=== PATIENT | male | born 1950 | race Caucasian/White ===

== ENCOUNTER 2019-03-18 18:36 | Inpatient (IN) | payer MEDICARE, BC, SELFPAY ==
[2019-03-18] VITALS (18 sets, daily range): BP systolic 84–154; BP diastolic 48–82; PULSE 84–109; RESP 12–34; TEMP 36.9; O2SAT 64–100
--- NOTE | ~2019-03-18 | XR_ITS ---
XR chest 1V portable DATE: 03/25/2019 06:07 INDICATION: Acute on chronic respiratory failure. COPD exacerbation. TECHNIQUE: Portable AP chest on 04/04/2019 at 0528 hours COMPARISON: 04/03/2019 portable AP chest at 0517 hours FINDINGS: ET tube tip is 4.4 cm above joanne. NG tube is noted passing into stomach. No central lines . Bilateral hyperinflation consistent with COPD. There is old pulmonary granulomatous disease including calcified right lower lung calcified pulmonary granuloma and calcified right hilar and mediastinal n odes. No pulmonary infiltrate or consolidation, pleural effusion or pulmonary vascular congestion or pneumothorax. Normal heart size. Diffuse osteopenia. IMPRESSION: COPD Old pulmonary granulomatous disease ET and NG tubes satisfactory position Reviewed, dictated and finalized at location A. IN DOFFER
--- NOTE | ~2019-03-18 | XR_ITS ---
EXAMINATION: XR chest 1V portable DATE: 03/18/2019 22:52 INDICATION: Acute respiratory failure. TECHNIQUE: A single frontal view of the chest was obtained on 2 radiographs. COMPARISON: Chest single view at 7:58 PM FINDINGS: The lungs are hyperexpanded with lucencies, consistent with emphysema. A calcified right ashley ng nodule and calcified right hilar and mediastinal lymph nodes are consistent with old granulomatous disease. There is mild atelectasis in the lower lung zones. No pleural effusion or pneumothorax. The heart size is normal. IMPRESSION: 1. Mild atelectasis in the lower lung zones. 2. Emphysema. Reviewed, dictated and finalized at location A. UIT FACTORY WORKER
--- NOTE | ~2019-03-18 | XR_ITS ---
EXAMINATION: XR chest 1V portable DATE: 03/27/2019 06:00 INDICATION: COPD exacerbation. Acute respiratory failure. TECHNIQUE: frontal view of the chest was obtained. COMPARISON: Chest radiograph and CT abdomen and pelvis dated 03/26/2019 FINDINGS: Endotracheal tube tip 7.2 cm above the joanne. Nasogastric tube extends below the left hemidiaphragm with distal tip collimated off the study. Hyperexpansion of lungs with asymmetric increased lucency and architectural distortion in the left mi d and lower lung zones consistent with emphysema. Gradient of mild hazy airspace opacity in the right lower lung zone corresponding to a small posteriorly layering pleural effusion with associated atele ctasis. Calcified nodules in the right lower lung zone along with calcified right hilar and mediastin al lymph nodes consistent with old granulomatous disease. No pneumothorax. The cardiomediastinal silh ouette is normal. IMPRESSION: 1. Endotracheal tube tip 7.2 cm above the joanne. Recommend advancement by 4-[address] Courtney discu ssed these findings with Dr. Stafford at 7:30 AM. 2. Emphysema. 3. Small right pleural effusion with mild right basilar atelectasis. Reviewed, dictated and finalized at location A. NING SOLUTIONS SPECIALIST IMPRESSION: 1. Endotracheal tube tip 7.2 cm above the joanne. Recommend advancement by 4-[address] Courtney discussed these findings with Dr. Stafford at 7:30 AM. 2. Emphysema. 3. Small right pleural effusion with mild right basilar atelectasis.
--- NOTE | ~2019-03-18 | XR_ITS ---
EXAMINATION: XR abdomen obstructive series DATE: 03/26/2019 09:28 INDICATION: Dilated small bowel. TECHNIQUE: Upright and supine views of the abdomen were obtained. COMPARISON: Abdomen radiographs 03/22/2019, 03/23/2019 FINDINGS: There is a mildly dilated loop of small bowel in right abdomen. There is a small volume of stool in the colon. No free intraperitoneal gas. The nasogastric tube tip is in the stomach. There is a right groin central venous catheter. There is internal fixation of proximal right femur. Calcified right lung nodules and calcified right hilar and mediastinal lymph nodes are consistent with old gra nulomatous disease. IMPRESSION: 1. Persistently mildly dilated loop of small bowel, consistent with adynamic ileus versus small bowel obstruction. Reviewed, dictated and finalized at location A. ZINE PUBLISHER IMPRESSION: 1. Persistently mildly dilated loop of small bowel, consistent with adynamic il eus versus small bowel obstruction.
--- NOTE | ~2019-03-18 | XR_ITS ---
EXAMINATION: XR chest 1V portable DATE: 03/22/2019 05:27 INDICATION: Mechanical ventilation. TECHNIQUE: A single frontal view of the chest was obtained. COMPARISON: Chest single view 03/21/2019 FINDINGS: The lungs are hyperexpanded with lucencies, consistent with emphysema. No pneumonia, pleura l effusion, or pneumothorax. The heart size is normal. Calcified right hilar and mediastinal lymph no cecy are consistent with old granulomatous disease. The endotracheal tube tip is 3.2 cm above the aixa na. The nasogastric tube tip is in the stomach. IMPRESSION: 1. Emphysema. Reviewed, dictated and finalized at location A. SAWYER IMPRESSION: 1. Emphysema.
--- NOTE | ~2019-03-18 | XR_ITS ---
EXAMINATION: XR chest ET placement DATE: 03/19/2019 01:35 INDICATION: Intubation. TECHNIQUE: A single frontal view of the chest was obtained on 2 radiographs. COMPARISON: Chest single view 03/18/2019 FINDINGS: The lungs are hyperexpanded with lucencies, consistent with emphysema. A calcified right ashley ng nodule and calcified right hilar and mediastinal lymph nodes are consistent with old granulomatous disease. There is mild atelectasis at the lung bases. No pleural effusion or pneumothorax. The heart size is normal. The endotracheal tube tip is 6.7 cm above the joanne. The nasogastric tube tip is in the stomach. IMPRESSION: 1. Mild atelectasis at the lung bases. 2. Emphysema. Reviewed, dictated and finalized at location A. ING AND FINANCE INSTRUCTOR
--- NOTE | ~2019-03-18 | CT_ITS ---
EXAMINATION: CT abdomen pelvis w con DATE: 03/26/2019 15:29 INDICATION: Abdominal distention. TECHNIQUE: Computed tomography (CT) of the abdomen and pelvis was performed with 100 mL Omnipaque 350 intravenous contrast. Automated exposure control and iterative reconstruction technique were employe d. The dose-length product was 481.74 mGy-cm. COMPARISON: PET/CT 12/10/2015 FINDINGS: The visualized portions of the lung bases demonstrate emphysema. There is mild bronchiectas is bilaterally. A calcified right lung nodule is consistent with old granulomatous disease. There is a small right pleural effusion. There is dependent passive atelectasis in right lung. The heart size is normal. No pericardial effusion. The nasogastric tube tip is in the stomach. The liver demonstrate s periportal edema. There are gallstones in the gallbladder, which is normal in size. Calcifications in the spleen are consistent with old granulomatous disease. The pancreas and adrenal glands are norm al. There are cysts in the kidneys measuring up to 2.0 cm on the left. There is a 5 mm stone in left kidney. There is diverticulosis of the colon without evidence of diverticulitis. There are no dilated loops of bowel. The appendix is not visualized. There is a small volume of ascites. Body wall edema is noted. There is a central venous catheter entering right common femoral vein with tip in the infer ior vena cava. There is an old healed fracture of proximal right femur with internal fixation. There is severe lumbar spondylosis. There is mild chronic anterior wedging of L1 vertebral body. IMPRESSION: 1. Small volume of ascites. 2. Small right pleural effusion. 3. Severe emphysema. Reviewed, dictated and finalized at location A. O OPHTHALMOLOGIST
--- NOTE | ~2019-03-18 | XR_ITS ---
XR chest 1V portable DATE: 03/24/2019 05:35 INDICATION: Acute on chronic respiratory failure. COPD. TECHNIQUE: Portable AP chest on 03/24/2019 at 0517 hours COMPARISON: Portable AP chest on 03/23/2019 0514 hours FINDINGS: ET tube tip is approximately 5.5 cm above joanne; ideal range is 2-5 cm. Nasogastric tube in gastric fundus. No central lines. Bilateral hyperinflation consistent with COPD. No pulmonary infiltrate or consolidation, pleural effu justin or pneumothorax is evident. There is pulmonary vascular redistribution which may indicate pulmon marco venous hypertension. Normal heart size. There is pulmonary vascular redistribution which may be secondary to COPD or mild pulmonary venous hypertension. Clinical correlation is advised. There is old pulmonary granulomatous disease including calcified right lower lobe pulmonary granuloma and calcified right hilar, subcarina l and azygos lymph nodes. IMPRESSION: COPD Pulmonary vascular distribution which may be secondary to the COPD or possibly pulmonary venous hyper tension. Heart size is normal ET tube 5.5 cm above joanne; ideal range is 2-5 cm NG tube in gastric fundus Reviewed, dictated and finalized at location A. STIVE TECHNOLOGY TRAINER IMPRESSION: COPD Pulmonary vascular distribution which may be secondary to the COPD or possibly pulmonary venous hypertension. Heart size is normal ET tube 5.5 cm above joanne; ideal range is 2-5 cm NG tube in gastric fundus
--- NOTE | ~2019-03-18 | XR_ITS ---
EXAMINATION: XR chest 1V portable DATE: 03/23/2019 05:35 INDICATION: Acute on chronic respiratory failure. TECHNIQUE: A single frontal view of the chest was obtained on 2 radiographs. COMPARISON: Chest single view 03/22/2019, chest CT 01/15/2019 FINDINGS: The lungs are hyperexpanded with lucencies, consistent with emphysema. A calcified right ashley ng nodule and calcified right hilar and mediastinal lymph nodes are consistent with old granulomatous disease. No pleural effusion or pneumothorax. The heart size is normal. The endotracheal tube tip is 4.1 cm above the joanne. The nasogastric tube tip is in the stomach. IMPRESSION: 1. Emphysema. Reviewed, dictated and finalized at location A. INSTRUMENT REPAIRER IMPRESSION: 1. Emphysema.
--- NOTE | ~2019-03-18 | XR_ITS ---
EXAMINATION: XR abdomen obstructive series EXAM DATE: 03/23/2019 10:59 INDICATION: Ileus follow-up. Feeding tube. TECHNIQUE: Frontal upright projection of the upper abdomen, frontal projection of the lower abdomen f or interpretation. Comparison is made to prior examination from 03/22/2019. FINDINGS: Feeding tube tip and side-port project over gastric cardia, expected position. There is ex pected amount of colonic stool and gas. Mildly dilated air-filled small bowel again noted. There a re no suspicious calcifications identified. Mild to moderate bony degenerative changes. Scattered r ight-sided lung granulomata and evidence of hyperinflation. No free intraperitoneal gas suspected. Ri ght hip gamma nail. IMPRESSION: Mildly dilated air-filled small bowel. Feeding tube in position. Reviewed, dictated and finalized at location A. ICAL SCRUB TECH
--- NOTE | ~2019-03-18 | XR_ITS ---
EXAMINATION: XR chest 1V portable DATE: 03/21/2019 05:44 INDICATION: Mechanical ventilation. TECHNIQUE: A single frontal view of the chest was obtained. COMPARISON: A single view 03/20/2019 FINDINGS: The lungs are hyperexpanded with lucencies, consistent with emphysema. A calcified right ashley ng nodule and calcified right hilar and mediastinal lymph nodes are consistent with old granulomatous disease. No pleural effusion or pneumothorax. The heart size is normal. The endotracheal tube tip is 2.2 cm above the joanne. The nasogastric tube tip is in the stomach with proximal side port in the d istal esophagus. There are old healed right rib fractures. IMPRESSION: 1. Emphysema. 2. Nasogastric tube proximal side port in the distal esophagus. Advancement 5 cm is recommended. Reviewed, dictated and finalized at location A. EACH MANAGER IMPRESSION: 1. Emphysema. 2. Nasogastric tube proximal side port in the distal esophagus. Advancement 5 c m is recommended.
--- NOTE | ~2019-03-18 | XR_ITS ---
EXAMINATION: XR chest 1V portable DATE: 03/18/2019 20:04 INDICATION: Shortness of breath. TECHNIQUE: A single frontal view of the chest was obtained on 2 radiographs. COMPARISON: Chest single view 01/22/2019, chest CT 01/15/2019 FINDINGS: The lungs are hyperexpanded with lucencies, consistent with emphysema. A calcified right ashley ng nodule and calcified right hilar and mediastinal lymph nodes are consistent with old granulomatous disease. No pleural effusion or pneumothorax. The heart size is normal. IMPRESSION: 1. Emphysema. Reviewed, dictated and finalized at location A. UMER INSIGHT MANAGER IMPRESSION: 1. Emphysema.
--- NOTE | ~2019-03-18 | XR_ITS ---
EXAMINATION: XR chest 1V portable DATE: 03/20/2019 05:56 INDICATION: Mechanical ventilation. TECHNIQUE: A single frontal view of the chest was obtained. COMPARISON: Chest single view 03/19/2019 FINDINGS: A calcified right lung nodule and calcified right hilar and mediastinal lymph nodes are con sistent with old granulomatous disease. The lungs are hyperexpanded with lucencies, consistent with e mphysema. No pleural effusion or pneumothorax. The heart size is normal. The endotracheal tube tip is 4.7 cm above the joanne. The nasogastric tube tip is in the stomach. IMPRESSION: 1. Emphysema. Reviewed, dictated and finalized at location A. SEAT COVERER IMPRESSION: 1. Emphysema.
--- NOTE | ~2019-03-18 | XR_ITS ---
EXAMINATION: XR chest 1V portable DATE: 03/26/2019 06:03 INDICATION: COPD. Acute on chronic respiratory failure. TECHNIQUE: frontal view of the chest was obtained. COMPARISON: Chest radiograph dated 03/25/2019 FINDINGS: Endotracheal tube tip 5.2 cm above the joanne. Nasogastric tube extends below the left hemidiaphragm with distal tip collimated off the study. Emphysema with hyperexpansion of lungs and increased lucency and architectural distortion most promin ent in the left mid to lower lung zone. Calcified nodule at the right lower lung zone and calcified r ight hilar and mediastinal lymph nodes consistent with old granulomatous disease. No focal airspace o pacities, pulmonary edema, pleural effusion or pneumothorax. Heart size and mediastinal silhouette ar e normal. Old right ninth and 10th rib fractures. IMPRESSION: 1. Emphysema. 2. Endotracheal tube tip 5.2 cm above the joanne. Could consider advancement by 2-3 cm. Reviewed, dictated and finalized at location A. MARKETING AGENT
--- NOTE | ~2019-03-18 | XR_ITS ---
EXAMINATION: XR abdomen obstructive series DATE: 03/22/2019 10:34 INDICATION: Abdominal pain. TECHNIQUE: Upright and supine views of the abdomen were obtained. COMPARISON: Chest CT 01/15/2019 FINDINGS: There is a dilated loop of small bowel in right abdomen. There is a moderate volume of stoo l in the colon. No free intraperitoneal gas. The nasogastric tube tip is in the stomach with proximal side port in the distal esophagus. There is a catheter overlying right pelvis. There is internal fix ation of proximal right femur. IMPRESSION: 1. Dilated loop of small bowel in right abdomen, which may be adynamic ileus or less likely small bow el obstruction. 2. Proximal side port of the nasogastric tube in the distal esophagus. Advancement 3 cm is recommende d. Reviewed, dictated and finalized at location A. ERCIAL ESCROW OFFICER IMPRESSION: 1. Dilated loop of small bowel in right abdomen, which may be adynamic ileus or less likely small bowel obstruction. 2. Proximal side port of the nasogastric tube in the distal esophagus. Advancem ent 3 cm is recommended.
--- NOTE | 2019-03-18 18:40 | ED.SOB ---
HPI - SOB/Dyspnea General Chief Complaint: Shortness of Breath/Dyspnea Stated Complaint: sob Time Seen by Provider: 03/18/19 18:41 Source: patient, EMS and RN notes reviewed Mode of arrival: EMS Limitations: no limitations History of Present Illness HPI Narrative: Pt is a 68 y/o male who presents to the ED, via EMS, with c/o SOB which began this morning, which has not alleviated since this morning. Pt reports increased fatigue since 6 days ago, but denies a cough, a fever, generalized myalgias, nausea, or vomiting. EMS reports administering an Albuterol treatment and 125 mg Solumedrol medication which began to alleviate the pt's symptoms. EMS reports the pt's oxygen saturation increased to 98 en route to the ED. EMS states the pt's appearance has improved since their arrival to the scene till now in the ED. EMS reports the pt has a PMHx of HTN, emphysema, and COPD. MD elicited complaint: shortness of breath Pertinent past history: COPD and other (emphysema) Onset (ago): hour(s) (this morning) Context: other (sudden onset) Timing: constant Relieving factors: medication (Albuterol breathing treatment; Solumedrol medication 125 mg) Known history of: COPD and other (emphysema) Associated symptoms: other (increased fatigue) Related Data Home Medications Medication Instructions Recorded Confirmed albuterol sulfate 90 mcg/actuation 1 puff INHALATION Q4H PRN 01/04/19 01/22/19 aerosol inhaler bupropion HCl 300 mg 24 hr tablet, 300 mg PO QAM 01/04/19 01/22/19 extended release clonazepam 1 mg tablet 1 mg PO TID PRN 01/04/19 01/22/19 mometasone-formoterol HFA 200 2 puff INHALATION BID 01/04/19 01/22/19 mcg-5 mcg/actuation aerosol inhaler nitroglycerin 0.4 mg sublingual 0.4 mg SUBLINGUAL Q5M PRN 01/04/19 01/22/19 tablet paroxetine HCl 40 mg tablet 40 mg PO DAILY 01/04/19 01/22/19 tiotropium bromide 18 mcg capsule 1 cap INHALATION DAILY 01/04/19 01/22/19 with inhalation device ascorbic acid (vitamin C) 500 mg PO DAILY 01/22/19 01/22/19 Allergies Allergy/AdvReac Type Severity Reaction Status Date / Time guaifenesin Allergy Unknown PT STATES Verified 03/18/19 18:44 FEELS WEIRD, GETS OUT OF IT Review of Systems Review of Systems: All systems reviewed & are unremarkable except as noted in HPI and below Constitutional: Constitutional: Reports fatigue (increased) and Denies fever(s) Respiratory: Respiratory: Denies cough and Reports dyspnea Gastrointestinal: Gastrointestinal: Denies nausea and Denies vomiting Musculoskeletal: Musculoskeletal: Denies myalgias (generalized) [facility] Social History Social History Smoking packs per day: 1 Smoking cigarettes per day: 20.0 Years smoked: 50 Smoking pack-years: 50.00 Smoking status: Light tobacco smoker Tobacco type: cigarettes Second hand tobacco smoke exposure: No Alcohol intake: current Drinks per week: 1 Substance use: never Substance use type: marijuana Gender identity (if verbalized by the patient): Male Spiritual care concerns: No Exam Const: General: alert and ill appearing acutely and chronically Nutritional Appearance: thin Orientation/consciousness: patient oriented x3 Other: mild distress HENMT: Head: normal to inspection Neck: Neck: normal visual inspection Chest: Other: minimal chest rise with respirations Resp: Effort & Inspection: labored and tachypneic Auscultation: no crackles, rhonchi upper bilaterally, wheezes and diminished lung sounds diffuse Cardio: Rate: tachycardic Rhythm: regular rhythm GI: GI Palp: Yes Soft to palpation and No Tenderness to palpation present (GI) Skin: General skin exam: normal color Rashes: no rashes Neuro: General: patient oriented x3 and moves all extremities Speech: normal speech Extrem: General: no edema Course Vital Signs Vital signs: Vital Signs Temperature 36.9 C 03/18/19 18:38 Pulse Rate 10
--- NOTE | 2019-03-18 18:41 | ECG_ITS ---
Measurements Intervals [place] Rate: 106 P: 90 IA: 142 QRS: 109 QRSD: 106 T: 108 QT: 347 QTc: 463 Interpretive Statements SINUS TACHYCARDIA POSSIBLE LEFT ATRIAL ENLARGEMENT RIGHT AXIS DEVIATION BASELINE ARTIFACT- I, II, AVR, AVL, AVF, V1-V6 ABNORMAL ECG Electronically Signed On 03-19-2019 7:12:32 CATHODIC PROTECTION TECHNICIAN by Tj Hartman D.O.
[2019-03-18] MEDS: IPRATROPIUM BR 0.02% INH SOLN 0.5 MG/2.5 ML VIAL 1 MG INHALATION (18:57)
[2019-03-18] MEDS: ALBUTEROL SULFATE NEB 2.5 MG/0.5 ML INH 10 MG INHALATION (18:57)
[2019-03-18] MEDS: MAGNESIUM SULF 2 GM/WATER 50ML 2 GM/50 ML BAG IVPB (19:02)
[2019-03-18 19:14] LABS: Alveolar/Arterial O2 Gradient 99.7 mmHg; Base Excess ABG 7.6 mEq/l (+/-2.0); Fractional Inspired Oxygen 36 %; Oxygen Content ABG 16.8 %vol (16.0-22.0); Oxyhemoglobin 86.5 % THb (90.0-100.0); PO2 ABG 56.9 mmHg (80.0-100.0); PO2 FiO2 Ratio Arterial Blood 1.58 %; Total Hemoglobin 13.8 g/dL (12.0-18.0)
[2019-03-18 19:17] LABS: pH ABG 7.262 (7.350-7.450)
[2019-03-18 19:18] LABS: Device NASAL CANNULA; Modified Allen's Test Pass; Oxygen Saturation ABG 83.6 % (95.0-100.0); PCO2 ABG 86.3 mmHg (35.0-45.0); Site Drawn LEFT RADIAL
[2019-03-18 19:34] LABS: Lactic Acid Reflex 0.7 mmol/L (0.7-2.1)
[2019-03-18 19:36] LABS: INR 0.9; Prothrombin Time 12.2 Seconds (11.1-14.7)
[2019-03-18 19:37] LABS: Partial Thromboplastin Time 31.3 SECONDS (22.3-36.8)
[2019-03-18 19:38] LABS: Basophils Absolute Auto 0.1 K/mm3 (0.0-0.1); Basophils Percent Auto 0.3 % (0.2-1.2); Hematocrit 43.3 % (42.0-52.0); Hemoglobin 13.3 g/dL (14.0-18.0); Immature Granulocyte Absolute 0.06 K/mm3 (0.00-0.031); Immature Granulocyte Percent A 0.4 % (0-0.5); Lymphocytes Percent Auto 3.2 % (18.3-44.2); Mean Corpuscular HGB Conc 30.7 g/dl (32-36); Mean Corpuscular Hemoglobin 31.1 pg (26-34); Mean Corpuscular Volume 101.4 fl (80-100); Mean Platelet Volume 9.6 fl (7.4-10.4); Monocytes Absolute Auto 1.2 K/mm3 (0.1-0.6); Monocytes Percent Auto 7.9 % (2.6-8.5); Neutrophils Absolute Auto 13.9 K/mm3 (1.3-6.7); Neutrophils Percent Auto 88.2 % (45.5-73.1); Platelet Count Result 306 k/mm3 (150-375); Red Blood Count 4.27 M/mm3 (4.6-6.20); Red Cell Distribution Width 14.5 % (11.5-14.5); White Blood Count 15.8 K/mm3 (4.5-10.0)
[2019-03-18 19:39] LABS: Blood Urea Nitrogen 18 mg/dL (9-20); Calcium 9.4 mg/dL (8.4-10.2); Carbon Dioxide > 40 mmol/L (22-30); Chloride 85 mmol/L (98-107); Estimated Glomerular Filt Rate > 60; Glucose 110 mg/dL (75-110); Potassium 4.3 mmol/L (3.4-5.0); Sodium 135 mmol/L (137-145)
[2019-03-18 19:46] LABS: NT Pro B Type Natriuretic Pept 260 PG/ML (5-100); Troponin I < 0.012 ng/mL (0.000-0.034)
[2019-03-18] MEDS: SODIUM CHLORIDE 0.9% IV 1,000 ML 999 ML IV CONT (21:21)
[2019-03-18] MEDS: SODIUM CHLORIDE 0.9% IV 1,000 ML 999 ML ×2 (21:47→22:58)
[2019-03-18 22:26] LABS: Alveolar/Arterial O2 Gradient 52.3 mmHg; Fractional Inspired Oxygen 30 %; HCO3 ABG 34.7 mEq/l (22.0-26.0); Oxygen Content ABG 14.9 %vol (16.0-22.0); Oxyhemoglobin 83.3 % THb (90.0-100.0); PO2 ABG 56.1 mmHg (80.0-100.0); PO2 FiO2 Ratio Arterial Blood 1.87 %; Total Hemoglobin 12.7 g/dL (12.0-18.0)
[2019-03-18 22:31] LABS: pH ABG 7.205 (7.350-7.450)
[2019-03-18 22:32] LABS: Device NON-INVASIVE VENT; Modified Allen's Test Pass; Oxygen Saturation ABG 80.7 % (95.0-100.0); PCO2 ABG 89.8 mmHg (35.0-45.0); Site Drawn RIGHT BRACHIAL
[2019-03-18 22:33] LABS: Non-Invasive Expiratory Pressure 8 CMH2O; Non-Invasive Inspiratory Pressure 14 CMH2O; Non-Invasive Vent Rate 12 /MIN
[2019-03-19] VITALS (76 sets, daily range): BP systolic 58–165; BP diastolic 47–106; PULSE 81–100; RESP 12–20; TEMP 36.7–37.1; O2SAT 92–100; BMI 19.1
--- NOTE | 2019-03-19 00:15 | ADMGEN ---
This patient, To Josue, was admitted to Intensive Care Unit-5. Patient/family oriented to hospital policies and general routines including ID bracelet, bed and alarms, visiting hours, pain management, procedures, bathroom and other care routines, personal items, smoking policy, room service/diet, and visiting hours. Valuables list has been completed. Information on how to activate the Rapid Response Team has been discussed. Patient/Family are encouraged to report perceived risks to care and to ask questions if they do not understand what they are told or what they should do.
[2019-03-19 00:36] LABS: Alveolar/Arterial O2 Gradient 154.4 mmHg; Base Excess ABG 3.8 mEq/l (+/-2.0); Fractional Inspired Oxygen 60 %; HCO3 ABG 34.9 mEq/l (22.0-26.0); Methemoglobin ABG 0.7 %THb (0-1.5); Oxygen Content ABG 16.8 %vol (16.0-22.0); Oxygen Saturation ABG 98.6 % (95.0-100.0); Oxyhemoglobin 97.5 % THb (90.0-100.0); PO2 ABG 167.1 mmHg (80.0-100.0); PO2 FiO2 Ratio Arterial Blood 2.79 %; Reduced Hemoglobin 1.8 %THb (0-5.0)
[2019-03-19 00:39] LABS: Device NON-INVASIVE VENT; Modified Allen's Test Pass; PCO2 ABG 96.6 mmHg (35.0-45.0); Site Drawn LEFT RADIAL; pH ABG 7.176 (7.350-7.450)
[2019-03-19 00:40] LABS: Non-Invasive Expiratory Pressure 9 CMH2O; Non-Invasive Inspiratory Pressure 17 CMH2O; Non-Invasive Vent Rate 12 /MIN
[2019-03-19 00:50] LABS: Lactic Acid 0.7 mmol/L (0.7-2.1)
[2019-03-19 00:51] LABS: Magnesium 2.3 mg/dL (1.6-2.3)
--- NOTE | 2019-03-19 01:22 | P.PCNBED_ITS ---
Procedures Central Line Placement: Right Femoral: Discussed w/ patient and/or surrogate, the non-emergent placement of a central venous catheter, including its clinical necessity/indication & associated potential risks & complications.: Yes The patient and/or surrogate understand(s) and acknowledge(s) the need to proceed with central venous catheter insertion as an important element of the patient's clinical management.: Yes Emergently Placed - (Given emergent patient conditions, temporal constraints may not have permitted and aforementioned informed consent.): No Central Line Date: 03/19/19 Central Line Time: 01:05 Pre-procedural Time-Out was completed immediately before starting the procedure and confirmed: Patient Identification, Site, Procedure, Patient Position and the Availability of Requisite Equipment.: Yes Patient Position: supine Patient placed on monitor/pulse ox: Yes Provider Prep: mask, sterile gown, sterile gloves, Max. sterile barrier precautions, cap and hand hygiene Central line prep: Povidone-Iodine 1% Ultrasound used for placement: Yes Central line lumen inserted: triple Uzbek: 7 Length (cm): 20 Depth of Insertion (cm): 20 Post procedure: sutured in place, good blood return, all ports aspirated, flushed, capped, tegaderm, hemostatic disc and aseptic technique maintained throughout procedure Patient tolerated procedure: well and no complications Complications: none Additional comments: Date of service of procedure was 03/19/2019 at 01:00 hrs.
--- NOTE | 2019-03-19 01:23 | P.PCNBED_ITS ---
Procedures Intubation: Intubation Date: 03/19/19 Intubation Time: 01:24 A pre- procedural Time-Out was completed immediately before starting the procedure and confirmed: Patient Identification, Site, Procedure, Patient Position and the Availability of Requisite Equipment: Yes Sedative: none Paralytic: succinylcholine Mg given: 100 Laryngoscope: Horacio ET tube size: 8 Tube secured depth (cm): 25 Tube secured location: lips Tube placement confirmation: visualized tube passing through cords, equal breath sounds bilaterally, no breath sounds over epigastrium and confirmation by capnometry Patient tolerated procedure: well Intubation complications: none Additional comments: Date of service was 03/19/2019 at 01:20 hrs.
[2019-03-19] MEDS: MIDAZOLAM HCL 50 MG in DEXTROSE 5% 90 ML IV CONT ×2 (01:30→16:49)
--- NOTE | 2019-03-19 01:32 | PM.IMHP ---
H&P: HPI History of Present Illness Chief complaint: acute respiratory failure with hypercapnea Narrative: This is a 68-year-old male with known history of chronic respiratory failure on 2-3 L of oxygen at home as well as end-stage COPD and chronic smoker who is known to me from a recent admission to the hospital for acute respiratory failure and who returned to the hospital tonight with severe shortness of breath. The patient's tells me that he has not been feeling well for over a week now but started to experience increased wheezing and shortness of breath since yesterday. The patient denies any worsening cough and his has not noticed that he has been coughing much. He also is complaining of generalized weakness. Patient denies any type of fevers or chills. Tonight they decided to come to the emergency room as he had obvious increased work of breathing at home. The patient was evaluated emergency room tonight and found to be septic with hypotension, tachycardia, tachypnea, and an elevated white blood cell count. Patient was started on respiratory antibiotics including azithromycin and ceftriaxone and was treated with 3 L of normal saline IV bolused. Arterial blood gas demonstrated hypercapnic respiratory failure at the patient was initiated on BiPAP. Patient denies any other significant symptoms such as chest pain, sore throat, abdominal pain, nausea, vomiting, fever, chills, headache, dysuria, hematuria, rectal bleeding, lower extremity swelling, or lower extremity pain. ER provider has consulted transplant nurse, Dr. Stafford. Review of Systems Review of Systems: All systems reviewed & are unremarkable except as noted in HPI and below PMFSH Past Medical History Medical History Arthritis Bronchitis Colon polyps COPD (chronic obstructive pulmonary disease) Depression Hand fracture History of angina HTN (hypertension) Osteomyelitis rt shoulder Pneumonia Sleep apnea Tobacco dependence Surgical History Surgical History Hx of tonsillectomy Hx of vasectomy Family History Family History Mother Family history of lung cancer Patient's mother is Acute myocardial infarction Father Patient's father is Acute myocardial infarction Social History Social History Smoking packs per day: 1 Smoking cigarettes per day: 20.0 Years smoked: 50 Smoking pack-years: 50.00 Smoking status: Light tobacco smoker Tobacco type: cigarettes Second hand tobacco smoke exposure: No Alcohol intake: current Drinks per week: 1 Substance use: never Substance use type: marijuana Gender identity (if verbalized by the patient): Male Spiritual care concerns: No Meds Home Medications and Allergies Home Medications Medication Instructions Recorded Confirmed Type amlodipine 5 mg-valsartan 160 mg 1 tablet PO DAILY #90 tablet 12/25/18 03/19/19 Rx tablet albuterol sulfate 90 mcg/actuation 2 puff INHALATION Q4H PRN 01/04/19 03/19/19 History aerosol inhaler bupropion HCl 300 mg 24 hr tablet, 300 mg PO QAM 01/04/19 03/19/19 History extended release clonazepam 1 mg tablet 1 mg PO TID PRN 01/04/19 03/19/19 History mometasone-formoterol HFA 200 2 puff INHALATION BID 01/04/19 03/19/19 History mcg-5 mcg/actuation aerosol inhaler nitroglycerin 0.4 mg sublingual 0.4 mg SUBLINGUAL Q5M PRN 01/04/19 03/19/19 History tablet paroxetine HCl 40 mg tablet 40 mg PO DAILY 01/04/19 03/19/19 History tiotropium bromide 18 mcg capsule 1 cap INHALATION DAILY 01/04/19 03/19/19 History with inhalation device ascorbic acid (vitamin C) 500 mg PO DAILY 01/22/19 03/19/19 History aripiprazole 2 mg tablet 2 mg PO DAILY #90 tablet 02/12/19 03/19/19 Rx levalbuterol HCl 1.25 mg INHALATION Q6H
[2019-03-19] MEDS: NOREPINEPHRINE 8 MG/D5W 250 ML 8 MG/250 ML BAG 3.8 MG IV CONT (01:34)
[2019-03-19] MEDS: methylPREDNISolone SOD SUCC 125 MG VIAL 60 MG IV PUSH ×3 (02:14→13:06)
--- NOTE | 2019-03-19 02:18 | ECG_ITS ---
Measurements Intervals [place] Rate: 99 P: 87 TN: 137 QRS: 83 QRSD: 81 T: 90 QT: 332 QTc: 427 Interpretive Statements SINUS RHYTHM POSSIBLE RIGHT ATRIAL ENLARGEMENT LOW QRS VOLTAGE IN LIMB LEADS NONSPECIFIC ST ELEVATION IN ANTERIOR LEADS BORDERLINE T WAVE ABNORMALITY- LATERAL LEADS BORDERLINE ECG Electronically Signed On 03-19-2019 11:02:32 MACHINE ACCOUNTANT by Tj Hartman D.O.
[2019-03-19] MEDS: SODIUM CHLORIDE 0.9% IV 500 ML 999 ML IV CONT (02:30)
[2019-03-19 03:35] LABS: Troponin I < 0.012 ng/mL (0.000-0.034)
[2019-03-19] MEDS: RAPID SEQUENCE INTUBATION KIT 1 EACH (03:59)
--- NOTE | 2019-03-19 04:07 | PCRCNOTE ---
0200 neb tx was omitted; a continuous neb tx was ordered
[2019-03-19 04:37] LABS: Alveolar/Arterial O2 Gradient 88.1 mmHg; Device VENTILATOR; Fractional Inspired Oxygen 50 %; HCO3 ABG 28.9 mEq/l (22.0-26.0); Modified Allen's Test Pass; Oxygen Saturation ABG 99.5 % (95.0-100.0); Oxyhemoglobin 98.2 % THb (90.0-100.0); PCO2 ABG 44.7 mmHg (35.0-45.0); PO2 ABG 218.1 mmHg (80.0-100.0); PO2 FiO2 Ratio Arterial Blood 4.36 %; Site Drawn LEFT RADIAL; Total Hemoglobin 13.4 g/dL (12.0-18.0); pH ABG 7.429 (7.350-7.450)
[2019-03-19 04:39] LABS: Arterial Blood Gas PEEP 6 cmH2O; Arterial Blood Gas Tidal Volume 350 ml; Arterial Blood Gas Vent Mode CMV; Arterial Blood Gas Ventilator rate 20 /MIN
[2019-03-19 04:53] LABS: Basophils Percent Auto 0.1 % (0.2-1.2); Hematocrit 36.8 % (42.0-52.0); Hemoglobin 11.6 g/dL (14.0-18.0); Immature Granulocyte Absolute 0.05 K/mm3 (0.00-0.031); Immature Granulocyte Percent A 0.4 % (0-0.5); Lymphocytes Absolute Auto 0.13 K/mm3 (0.9-3.2); Mean Corpuscular HGB Conc 31.5 g/dl (32-36); Mean Corpuscular Hemoglobin 31.6 pg (26-34); Mean Corpuscular Volume 100.3 fl (80-100); Mean Platelet Volume 9.2 fl (7.4-10.4); Monocytes Absolute Auto 0.3 K/mm3 (0.1-0.6); Neutrophils Percent Auto 96.5 % (45.5-73.1); Platelet Count Result 276 k/mm3 (150-375); Red Blood Count 3.67 M/mm3 (4.6-6.20); Red Cell Distribution Width 14.5 % (11.5-14.5); White Blood Count 12.5 K/mm3 (4.5-10.0)
[2019-03-19 05:10] LABS: Blood Urea Nitrogen 21 mg/dL (9-20); Calcium 8.4 mg/dL (8.4-10.2); Carbon Dioxide 30 mmol/L (22-30); Chloride 91 mmol/L (98-107); Estimated Glomerular Filt Rate > 60; Glucose 227 mg/dL (75-110); Sodium 133 mmol/L (137-145)
[2019-03-19] MEDS: SODIUM CHLORIDE 0.9% IV 1,000 ML 120 ML IV CONT ×3 (05:15→21:56)
[2019-03-19 06:00] LABS: Platelet Estimate Adequate (Adequate); Stomatocytes 1+ (NORMAL)
[2019-03-19] MEDS: IPRATROPIUM BR 0.02% INH SOLN 0.5 MG/2.5 ML VIAL INHALATION ×3 (08:38→20:07)
[2019-03-19] MEDS: ALBUTEROL SULFATE NEB 2.5 MG/0.5 ML INH 5 MG INHALATION ×3 (08:38→20:07)
--- NOTE | 2019-03-19 09:23 | PM.IMPN ---
Progress Note: A&P Assessment and Plan (1) Acute and chronic respiratory failure with hypercapnia: Code(s): J96.22 - Acute and chronic respiratory failure with hypercapnia Status: Acute Assessment and Plan: Now sedated and intubated. Ventilator management per health unit clerk. where with his emphysema extubation may be more difficult. Remains on fentanyl and Versed for sedation. Continue IV steroids, IV antibiotics and nebulizer treatments. Will monitor. (2) COPD exacerbation: Code(s): J44.1 - Chronic obstructive pulmonary disease with (acute) exacerbation Status: Acute Assessment and Plan: Now on ventilators noted above. Continue nebulizer treatments and IV steroids. Also on IV antibiotics. (3) Septic shock: Code(s): A41.9 - Sepsis, unspecified organism; R65.21 - Severe sepsis with septic shock Status: Acute Assessment and Plan: Blood, urine and MRSA nasal cultures all pending at this time. Will continue IV ceftriaxone and azithromycin. WBC is decreased to 12.5 today. Blood pressure reviewed on 03/19/2019 and low normal but stable with Levophed still in place. Telemetry reviewed on 03/19/2019 with sinus rhythm. Will monitor. (4) HTN (hypertension): Qualifiers: Hypertension type: unspecified Qualified Code(s): I10 - Essential (primary) hypertension Code(s): I10 - Essential (primary) hypertension Status: Chronic Assessment and Plan: With hypotension and need for Levophed, home We will hold home amlodipine and valsartan on hold. Will continue to monitor. (5) Depression: Qualifiers: Depression Type: other depression Qualified Code(s): F32.89 - Other specified depressive episodes Code(s): F32.9 - Major depressive disorder, single episode, unspecified Status: Chronic Assessment and Plan: Home bupropion and paroxetine currently on hold with intubation. Will resume when able. (6) Anxiety: Code(s): F41.9 - Anxiety disorder, unspecified Status: Chronic Assessment and Plan: Home clonazepam, bupropion and paroxetine on hold. Resume when able. (7) Tobacco dependence: Code(s): F17.200 - Nicotine dependence, unspecified, uncomplicated Status: Chronic Assessment and Plan: Counseled on cessation prior to intubation. Cessation imperative. (8) DVT prophylaxis: Code(s): Z29.9 - Encounter for prophylactic measures, unspecified Status: Acute Assessment and Plan: SCDs. Time Spent With Patient Time with patient: 15 - 25 minutes Subjective Date/time seen: 03/19/19 09:23 Interval history: Date of Service: 03/19/2019. Admitted with acute on chronic respiratory failure, COPD exacerbation, septic shock. Required intubation overnight due to worsening respiratory status. Now sedated on ventilator. at bedside. Review of Systems Review of Systems: ROS unobtainable: unobtainable due to endotracheal tube Genitourinary: Comments: Catheter in place. Exam Const: General: no acute distress HENMT: Other: ET/OG tubes in place Neck: Neck: supple Resp: Auscultation: no wheezes and diminished lung sounds Other: very poor aeration Cardio: Rate: regular rate Rhythm: regular rhythm GI: Inspection: non-distended GI Palp: Yes Soft to palpation Auscultation: normal bowel sounds Urinary Catheter: Urinary Catheter: patent and draining and urine clear Skin: General skin exam: normal color Neuro: Other: sedated Extrem: General: no edema Psych: Other: sedated Objective Data Vital Signs Vital Signs: Vital Signs - 24 hr 03/18/19 18:38 03/18/19 18:45 03/18/19 18:58 Temperature 98.5 F Pulse Rate 108 H 84 Respiratory Rate 34 H 18 Blood Pressure 124/65 Pulse Oximetry 96 92 93 03/18/19 19:08 03/18/19 19:21 03/18/19 19:41 Temperature Pulse Rate 93 103 H 101 H Respiratory Rate 28 H 22 H Blood Pressure 108/64 Pulse Oxim
--- NOTE | 2019-03-19 13:21 | WPDCNINT ---
Assessment and Plan Assessment and plan (1) Acute and chronic respiratory failure with hypercapnia: Code(s): J96.22 - Acute and chronic respiratory failure with hypercapnia Status: Acute Assessment and Plan: Now sedated and intubated. cxr does not have any infiltrates or PVC, Continue IV steroids, IV antibiotics and nebulizer treatments. Will monitor. (2) COPD exacerbation: Code(s): J44.1 - Chronic obstructive pulmonary disease with (acute) exacerbation Status: Acute Assessment and Plan: Now on ventilators noted above. Continue nebulizer treatments and IV steroids. Also on IV antibiotics. (3) Septic shock: Code(s): A41.9 - Sepsis, unspecified organism; R65.21 - Severe sepsis with septic shock Status: Acute Assessment and Plan: Blood, urine and MRSA nasal cultures all pending at this time. Will continue IV ceftriaxone and azithromycin. s/p 3 litres of fluid bolus and now on levophed, likely due to sedation. (4) HTN (hypertension): Qualifiers: Hypertension type: unspecified Qualified Code(s): I10 - Essential (primary) hypertension Code(s): I10 - Essential (primary) hypertension Status: Chronic Assessment and Plan: With hypotension and need for Levophed, home We will hold home amlodipine and valsartan on hold. Will continue to monitor. (5) Depression: Qualifiers: Depression Type: other depression Qualified Code(s): F32.89 - Other specified depressive episodes Code(s): F32.9 - Major depressive disorder, single episode, unspecified Status: Chronic Assessment and Plan: will resume home meds Per tube (6) Anxiety: Code(s): F41.9 - Anxiety disorder, unspecified Status: Chronic Assessment and Plan: Home clonazepam, bupropion and paroxetine on hold. will resumes . (7) Tobacco dependence: Code(s): F17.200 - Nicotine dependence, unspecified, uncomplicated Status: Chronic Assessment and Plan: Counseled on cessation prior to intubation. Cessation imperative. (8) DVT prophylaxis: Code(s): Z29.9 - Encounter for prophylactic measures, unspecified Status: Acute Assessment and Plan: will place on sq lovenox Programming Coordinator Consult Note Consult date: 03/19/19 Time Seen: 13:34 HPI: To Josue is a 68 year old male With past medical history history significant for severe end-stage COPD who continues to smoke, Who was brought to the emergency room from home as was concerned about his work of breathing. As per patient has been having shortness of breath and wheezing for the last 2 weeks however he did not want to come to the hospital. But yesterday she noticed that his work of breathing had increased so she brought him to the emergency room . In emergency room he was noted to have COPD exacerbation with septic shock. Patient had elevated WBC count and a tachypnea, tachycardia. He was placed on BiPAP and central line was placed and he was started on pressors. Patient was given 3 L of fluid bolus. He was admitted to the ICU for close observation. However overnight in the ICU patient decompensated and required intubation. His ABG showed acute hypercapnic and hypoxic respiratory failure. his lactic acid was normal at 0.7. His troponins were negative. Review of Systems Review of Systems: All systems reviewed & are unremarkable except as noted in HPI and below ROS unobtainable: unobtainable due to endotracheal tube Constitutional: Constitutional: Reports fatigue (increased) and Denies fever(s) Cardiovascular: Cardiovascular: Reports dyspnea Respiratory: Respiratory: Denies cough and Reports dyspnea Gastrointestinal: Gastrointestinal: Denies nausea and Denies vomiting Musculoskeletal: Musculoskeletal: Denies myalgias (generalized) Endocrine: Endocrine: Reports fatigue (increased) [facility] Past Medical History Medical History (Reviewed
[2019-03-19 13:26] LABS: Glucose Point of Care 158 (65-105)
[2019-03-19] MEDS: ARIPIPRAZOLE 2 MG TABLET PO (16:38)
[2019-03-19] MEDS: PAROXETINE 20 MG TABLET 40 MG PO (16:38)
[2019-03-19] MEDS: buPROPion HCL XL (24 HR) 150 MG TABCR 300 MG PO (16:38)
[2019-03-19] MEDS: NOREPINEPHRINE 8 MG/D5W 250 ML 8 MG/250 ML BAG 7.5 MG IV CONT (16:39)
[2019-03-19] MEDS: ENOXAPARIN 40 MG/0.4 ML SYRINGE SUB-Q (16:39)
[2019-03-19 16:49] LABS: Influenza Control Positive
[2019-03-19] MEDS: methylPREDNISolone SOD SUCC 40 MG VIAL IV PUSH ×2 (16:49→23:42)
[2019-03-19 17:12] LABS: Glucose Point of Care 157 (65-105)
[2019-03-19] MEDS: FAMOTIDINE 20 MG TABLET FEED TUBE (20:36)
[2019-03-19 23:47] LABS: Glucose Point of Care 157 (65-105)
[2019-03-20] VITALS (26 sets, daily range): BP systolic 84–122; BP diastolic 56–84; PULSE 76–125; RESP 14–95; TEMP 36.9–37.4; O2SAT 16–100
[2019-03-20] MEDS: ALBUTEROL SULFATE NEB 2.5 MG/0.5 ML INH 5 MG INHALATION ×4 (01:35→20:30)
[2019-03-20] MEDS: IPRATROPIUM BR 0.02% INH SOLN 0.5 MG/2.5 ML VIAL INHALATION ×4 (01:35→20:30)
[2019-03-20 05:11] LABS: Alveolar/Arterial O2 Gradient 88.2 mmHg; Base Excess ABG 3.4 mEq/l (+/-2.0); Fractional Inspired Oxygen 35 %; HCO3 ABG 30.8 mEq/l (22.0-26.0); Oxygen Content ABG 14.9 %vol (16.0-22.0); Oxygen Saturation ABG 95.9 % (95.0-100.0); Oxyhemoglobin 95.9 % THb (90.0-100.0); PO2 ABG 89.5 mmHg (80.0-100.0); PO2 FiO2 Ratio Arterial Blood 2.56 %; pH ABG 7.316 (7.350-7.450)
[2019-03-20 05:16] LABS: Device VENTILATOR; Modified Allen's Test Unable to perform; PCO2 ABG 61.8 mmHg (35.0-45.0); Site Drawn RIGHT RADIAL
[2019-03-20 05:17] LABS: Arterial Blood Gas PEEP 6 cmH2O; Arterial Blood Gas Tidal Volume 350 ml; Arterial Blood Gas Vent Mode CMV; Arterial Blood Gas Ventilator rate 14 /MIN
[2019-03-20] MEDS: methylPREDNISolone SOD SUCC 40 MG VIAL IV PUSH ×4 (05:37→23:30)
[2019-03-20] MEDS: SODIUM CHLORIDE 0.9% IV 1,000 ML 120 ML IV CONT ×3 (05:41→20:55)
[2019-03-20 05:55] LABS: Glucose Point of Care 149 (65-105)
[2019-03-20 06:19] LABS: Alanine Aminotransferase 19 U/L (4-50); Albumin Level 3.3 g/dL (3.5-5.1); Alkaline Phosphatase 84 U/L (38-126); Aspartate Amino Transferase 37 U/L (17-59); Bilirubin,Total 0.2 mg/dL (0.2-1.3); Blood Urea Nitrogen 40 mg/dL (9-20); Calcium 8.5 mg/dL (8.4-10.2); Carbon Dioxide 32 mmol/L (22-30); Chloride 97 mmol/L (98-107); Estimated CRCL calculation 31 ml/min; Estimated Glomerular Filt Rate 43; Glucose 138 mg/dL (75-110); Hematocrit 34.4 % (42.0-52.0); Hemoglobin 10.6 g/dL (14.0-18.0); Magnesium 2.3 mg/dL (1.6-2.3); Mean Corpuscular HGB Conc 30.8 g/dl (32-36); Mean Corpuscular Hemoglobin 31.5 pg (26-34); Mean Corpuscular Volume 102.4 fl (80-100); Mean Platelet Volume 9.7 fl (7.4-10.4); Phosphorus 2.9 mg/dL (2.5-4.5); Platelet Count Result 291 k/mm3 (150-375); Potassium 4.4 mmol/L (3.4-5.0); Red Blood Count 3.36 M/mm3 (4.6-6.20); Sodium 136 mmol/L (137-145); White Blood Count 19.9 K/mm3 (4.5-10.0)
[2019-03-20] MEDS: SODIUM CHLORIDE 0.9% IV 1,000 ML 999 ML IV CONT (08:16)
[2019-03-20] MEDS: ENOXAPARIN 40 MG/0.4 ML SYRINGE SUB-Q (08:25)
[2019-03-20] MEDS: PAROXETINE 20 MG TABLET 40 MG PO (08:25)
[2019-03-20] MEDS: buPROPion HCL XL (24 HR) 150 MG TABCR 300 MG PO (08:25)
[2019-03-20] MEDS: FAMOTIDINE 20 MG TABLET FEED TUBE ×2 (08:25→20:10)
[2019-03-20] MEDS: ARIPIPRAZOLE 2 MG TABLET PO (08:25)
--- NOTE | 2019-03-20 11:37 | PCDIET ---
Nutrition Follow-Up Complete: Nutrition Diagnosis: Inadequate oral intake related to oral intubation as evidenced by NPO status. Nutrition Goal: Patient to meet estimated nutritional needs. Goal met. Patient tolerating Glucerna 1.2 @ 50mL/hr goal rate with no significant residuals reported. RN reports abdomen slightly firm. MD aware. Last recorded weight is 53.8 kg which is stable. Bowel Motility: No documented bowel movements. MD notified. Labs Reviewed: Glu (138), BUN (40), Cr (1.6), Na (136), Alb (3.3), Hgb (10.6), Hct (34.4) Meds Noted: Albuterol, Rocephin, Fentanyl, Solu Medrol, Precedex, Pepcid, Novolog, Versed, Levophed, NS @ 120mL/hr Additional Notes: No reported skin breakdown. Recommend continuing present tube feeding with same goal. Nutrition Monitoring and Evaluation: Follow up every Tuesday/Tuesday. Follow daily in ICU rounds.
[2019-03-20 12:06] LABS: Glucose Point of Care 132 (65-105)
--- NOTE | 2019-03-20 15:09 | WPDINTPN ---
Progress Note: A&P Assessment and Plan (1) Acute and chronic respiratory failure with hypercapnia: Code(s): J96.22 - Acute and chronic respiratory failure with hypercapnia Status: Acute Assessment and Plan: Now sedated and intubated. cxr does not have any infiltrates or PVC, Continue IV steroids, IV antibiotics and nebulizer treatments. Will monitor. Not ready for vent weaning as still sounds very tight . (2) COPD exacerbation: Code(s): J44.1 - Chronic obstructive pulmonary disease with (acute) exacerbation Status: Acute Assessment and Plan: Now on ventilators noted above. Continue nebulizer treatments and IV steroids. Also on IV antibiotics. (3) Septic shock: Code(s): A41.9 - Sepsis, unspecified organism; R65.21 - Severe sepsis with septic shock Status: Acute Assessment and Plan: Blood, urine and MRSA nasal cultures all pending at this time. Will continue IV ceftriaxone and azithromycin. s/p 3 litres of fluid bolus and now on levophed, likely due to sedation. addiitonal fluid bolus given and IVF continued today for worsening renal failrue . (4) HTN (hypertension): Qualifiers: Hypertension type: unspecified Qualified Code(s): I10 - Essential (primary) hypertension Code(s): I10 - Essential (primary) hypertension Status: Chronic Assessment and Plan: With hypotension and need for Levophed, home We will hold home amlodipine and valsartan on hold. Will continue to monitor. (5) Depression: Qualifiers: Depression Type: other depression Qualified Code(s): F32.89 - Other specified depressive episodes Code(s): F32.9 - Major depressive disorder, single episode, unspecified Status: Chronic Assessment and Plan: will resume home meds Per tube (6) Anxiety: Code(s): F41.9 - Anxiety disorder, unspecified Status: Chronic Assessment and Plan: Home clonazepam, bupropion and paroxetine on hold. will resumes . (7) Tobacco dependence: Code(s): F17.200 - Nicotine dependence, unspecified, uncomplicated Status: Chronic Assessment and Plan: Counseled on cessation prior to intubation. Cessation imperative. (8) Acute renal failure: Code(s): N17.9 - Acute kidney failure, unspecified Status: Acute Assessment and Plan: Creatinine has increased from 0.7 yesterday to 1.6 today. Poor urine output reported per RN. I have given 1 L of IV fluid bolus and will continue IV fluids. Patient is already on tube feeds per goal. I think this represents ATN due to hypotension. Will continue supportive care and monitor eyes and nose via Torrez catheter. (9) DVT prophylaxis: Code(s): Z29.9 - Encounter for prophylactic measures, unspecified Status: Acute Assessment and Plan: will place on sq lovenox Additional Plan Plan of care d/w family at bedside . Time Spent With Patient Time: CCT- 40 min Subjective Date/time seen: 03/20/19 15:09 Interval history: Date of Service: 03/19/2019. Admitted with acute on chronic respiratory failure, COPD exacerbation, septic shock. Required intubation overnight due to worsening respiratory status. Now sedated on ventilator. at bedside. 2/- sedation chnaged to fentnayl and precedex. Still with severe wheezing . Not ready for vent weaning . Review of Systems Review of Systems: All systems reviewed & are unremarkable except as noted in HPI and below ROS unobtainable: unobtainable due to endotracheal tube Constitutional: Constitutional: Reports fatigue (increased) Musculoskeletal: Musculoskeletal: Denies myalgias (generalized) Endocrine: Endocrine: Reports fatigue (increased) Exam Const: General: no acute distress, alert, anxious and ill appearing acutely and chronically Nutritional Appearance: average body habitus and thin HENMT: Head: normal to inspection General nose exam: Normal external nose present Fa
[2019-03-20] MEDS: NOREPINEPHRINE 8 MG/D5W 250 ML 8 MG/250 ML BAG 7.5 MG IV CONT (17:52)
[2019-03-20 17:58] LABS: Glucose Point of Care 133 (65-105)
--- NOTE | 2019-03-20 18:38 | PM.IMPN ---
Progress Note: A&P Assessment and Plan (1) Acute and chronic respiratory failure with hypercapnia: Code(s): J96.22 - Acute and chronic respiratory failure with hypercapnia Status: Acute Assessment and Plan: Now sedated and intubated. Ventilator management per projects manager. Continue IV steroids, IV antibiotics and nebulizer treatments. Will monitor. Appreciate intensivsit input. (2) COPD exacerbation: Code(s): J44.1 - Chronic obstructive pulmonary disease with (acute) exacerbation Status: Acute Assessment and Plan: Now on mechanical ventilation as noted above. Continue nebulizer treatments, IV abx and IV steroids. (3) Septic shock: Code(s): A41.9 - Sepsis, unspecified organism; R65.21 - Severe sepsis with septic shock Status: Resolved Assessment and Plan: BP more stable on Levophed. Weaning slowly. Blood culture NGTD. UCx negative. MRSA nasal swab also negative. Continue IV ceftriaxone and azithromycin. WBC up to 20K today but on steroids. Appreciate intensivsit input. (4) HTN (hypertension): Qualifiers: Hypertension type: unspecified Qualified Code(s): I10 - Essential (primary) hypertension Code(s): I10 - Essential (primary) hypertension Status: Chronic Assessment and Plan: BP reviewed on 03/20/19. As above. Continue to hold home amlodipine and valsartan. (5) Depression: Qualifiers: Depression Type: other depression Qualified Code(s): F32.89 - Other specified depressive episodes Code(s): F32.9 - Major depressive disorder, single episode, unspecified Status: Chronic Assessment and Plan: Home abilify, bupropion and paroxetine resumed. (6) Anxiety: Code(s): F41.9 - Anxiety disorder, unspecified Status: Chronic Assessment and Plan: As above. (7) Tobacco dependence: Code(s): F17.200 - Nicotine dependence, unspecified, uncomplicated Status: Chronic Assessment and Plan: Counseled on tobacco cessation prior to intubation. Cessation imperative. Will reinforce once able. (8) DVT prophylaxis: Code(s): Z29.9 - Encounter for prophylactic measures, unspecified Status: Acute Assessment and Plan: Lovenox Subjective Date/time seen: 03/20/19 18:38 Interval history: 68yo male admitted with acute on chronic respiratory failure, COPD exacerbation, septic shock. Assuming care. Chart reviewed. Patietn currently intubated and sedated. No family at bedside. Toelrating TF. Currently on Precedex 0.5 and Fentanyl 50. Exam Narrative: Exam Narrative: Gen - intuabted and sedated HEENT - ETT and OG secured Chest - disatn breath sounds, comfortable CV - RRR S1/S2 Abd - soft +BS - Torrez secured draining clear yellow urine Ext - no pedal edema. Right femoral TLC in place. Neuro - sedate but responds to voice. Skin - warm and dry Objective Data Vital Signs Vital Signs: Vital Signs - 24 hr 03/19/19 20:00 03/19/19 20:07 03/19/19 20:23 Temperature 98.8 F Pulse Rate 81 82 83 Respiratory Rate 14 14 14 Blood Pressure 93/59 L Pulse Oximetry 92 93 03/19/19 22:00 03/19/19 22:55 03/20/19 00:00 Temperature 98.7 F Pulse Rate 91 86 85 Respiratory Rate 14 15 Blood Pressure 90/61 L 89/63 L Pulse Oximetry 92 92 93 03/20/19 01:35 03/20/19 01:44 03/20/19 02:00 Temperature Pulse Rate 85 85 90 Respiratory Rate 14 14 14 Blood Pressure 84/56 L Pulse Oximetry 93 95 03/20/19 04:00 03/20/19 05:27 03/20/19 06:00 Temperature 98.4 F Pulse Rate 77 79 76 Respiratory Rate 14 20 Blood Pressure 93/64 L 92/62 L Pulse Oximetry 94 92 100 03/20/19 07:57 03/20/19 07:58 03/20/19 07:59 Temperature Pulse Rate 79 80 Respiratory Rate 14 Blood Pressure Pulse Oximetry 93 95 03/20/19 08:00 03/20/19 08:14 03/20/19 10:00 Temperature 99.1 F Pulse Rate 79 81 80 Respiratory R
[2019-03-20 23:36] LABS: Glucose Point of Care 131 (65-105)
[2019-03-21] VITALS (28 sets, daily range): BP systolic 87–177; BP diastolic 57–115; PULSE 74–152; RESP 14–25; TEMP 36.9–38.8; O2SAT 94–96
[2019-03-21] MEDS: ALBUTEROL SULFATE NEB 2.5 MG/0.5 ML INH 5 MG INHALATION ×4 (02:15→19:59)
[2019-03-21] MEDS: IPRATROPIUM BR 0.02% INH SOLN 0.5 MG/2.5 ML VIAL INHALATION ×4 (02:15→19:59)
[2019-03-21] MEDS: methylPREDNISolone SOD SUCC 40 MG VIAL IV PUSH ×4 (05:00→23:38)
[2019-03-21 05:08] LABS: Glucose Point of Care 140 (65-105)
[2019-03-21 05:15] LABS: Alveolar/Arterial O2 Gradient 81.3 mmHg; Base Excess ABG 0.4 mEq/l (+/-2.0); Fractional Inspired Oxygen 40 %; HCO3 ABG 26.8 mEq/l (22.0-26.0); Oxygen Content ABG 15.5 %vol (16.0-22.0); Oxygen Saturation ABG 98.7 % (95.0-100.0); Oxyhemoglobin 97.4 % THb (90.0-100.0); PCO2 ABG 51.2 mmHg (35.0-45.0); PO2 FiO2 Ratio Arterial Blood 3.63 %; Total Hemoglobin 11.1 g/dL (12.0-18.0); pH ABG 7.337 (7.350-7.450)
[2019-03-21 05:18] LABS: Arterial Blood Gas PEEP 6 cmH2O; Arterial Blood Gas Tidal Volume 350 ml; Arterial Blood Gas Vent Mode CMV; Arterial Blood Gas Ventilator rate 16 /MIN; Device VENTILATOR; Site Drawn RIGHT BRACHIAL
[2019-03-21] MEDS: SODIUM CHLORIDE 0.9% IV 1,000 ML 120 ML IV CONT ×3 (05:20→21:37)
[2019-03-21 05:30] LABS: Hematocrit 33.7 % (42.0-52.0); Hemoglobin 10.6 g/dL (14.0-18.0); Mean Corpuscular HGB Conc 31.5 g/dl (32-36); Mean Corpuscular Hemoglobin 31.8 pg (26-34); Mean Corpuscular Volume 101.2 fl (80-100); Mean Platelet Volume 9.3 fl (7.4-10.4); Platelet Count Result 260 k/mm3 (150-375); Red Blood Count 3.33 M/mm3 (4.6-6.20); Red Cell Distribution Width 15.3 % (11.5-14.5); White Blood Count 18.4 K/mm3 (4.5-10.0)
[2019-03-21 06:30] LABS: Alanine Aminotransferase 22 U/L (4-50); Albumin Level 3.3 g/dL (3.5-5.1); Alkaline Phosphatase 79 U/L (38-126); Aspartate Amino Transferase 63 U/L (17-59); Bilirubin,Total < 0.1 mg/dL (0.2-1.3); Blood Urea Nitrogen 50 mg/dL (9-20); Calcium 8.6 mg/dL (8.4-10.2); Carbon Dioxide 26 mmol/L (22-30); Chloride 99 mmol/L (98-107); Estimated CRCL calculation 38 ml/min; Estimated Glomerular Filt Rate 55; Glucose 134 mg/dL (75-110); Magnesium 2.3 mg/dL (1.6-2.3); Phosphorus 3.5 mg/dL (2.5-4.5); Potassium 4.4 mmol/L (3.4-5.0); Sodium 133 mmol/L (137-145)
[2019-03-21] MEDS: buPROPion HCL XL (24 HR) 150 MG TABCR 300 MG PO (09:46)
[2019-03-21] MEDS: PAROXETINE 20 MG TABLET 40 MG PO (09:47)
[2019-03-21] MEDS: ENOXAPARIN 40 MG/0.4 ML SYRINGE SUB-Q (09:47)
[2019-03-21] MEDS: FAMOTIDINE 20 MG TABLET FEED TUBE ×2 (09:47→20:33)
[2019-03-21] MEDS: ARIPIPRAZOLE 2 MG TABLET PO (09:47)
--- NOTE | 2019-03-21 12:03 | PCDIET ---
ICU Rounding Note: Patient continues to tolerate Glucerna 1.2 @ 50mL/hr goal rate. Residuals 100mL and below. Last recorded weight is 53.6kg which is stable. Bowel Motility: No documented BM. MD informed during rounds. No new orders at this time. Labs Reviewed: Glu (140), BUN (50), Na (133), Alb (3.3) Meds Noted: Albuterol, Fentanyl, Pepcid, Rocephin, Novolog, Precedex, Solu Medrol, Versed, Levophed, NS @ 120mL/hr Additional Notes: Urine output low, but improved. No documented skin breakdown. Recommend continuing present tube feeding/rate at this time. Following daily in ICU rounds. Assessing/reassessing every Tuesday/Tuesday.
[2019-03-21 12:24] LABS: Glucose Point of Care 122 (65-105)
[2019-03-21] MEDS: LORAZEPAM INJ 2 MG/ML VIAL IV PUSH (12:56)
[2019-03-21] MEDS: CLONAZEPAM 0.5 MG TAB 1 MG PO ×3 (13:00→23:37)
[2019-03-21] MEDS: ACETAMINOPHEN 325 MG TABLET 650 MG PO (13:02)
--- NOTE | 2019-03-21 14:36 | WPDINTPN ---
Progress Note: A&P Assessment and Plan (1) Acute and chronic respiratory failure with hypercapnia: Code(s): J96.22 - Acute and chronic respiratory failure with hypercapnia Status: Acute Assessment and Plan: Now sedated and intubated. cxr does not have any infiltrates or PVC, Continue IV steroids, IV antibiotics and nebulizer treatments. Will monitor. Not ready for vent weaning as still sounds very tight and continues to have intermittent episodes of agitation , tachycardia , tachypnea when sedation weaned .. (2) COPD exacerbation: Code(s): J44.1 - Chronic obstructive pulmonary disease with (acute) exacerbation Status: Acute Assessment and Plan: Now on ventilators noted above. Continue nebulizer treatments and IV steroids. Also on IV antibiotics. (3) Septic shock: Code(s): A41.9 - Sepsis, unspecified organism; R65.21 - Severe sepsis with septic shock Status: Resolved Assessment and Plan: Blood, urine and MRSA nasal cultures all pending at this time. Will continue IV ceftriaxone and azithromycin. s/p 3 litres of fluid bolus and now on levophed, likely due to sedation. addiitonal fluid bolus given and IVF continued today for worsening renal failrue . levophed is now off . (4) Depression: Qualifiers: Depression Type: other depression Qualified Code(s): F32.89 - Other specified depressive episodes Code(s): F32.9 - Major depressive disorder, single episode, unspecified Status: Chronic Assessment and Plan: will resume home meds Per tube (5) Anxiety: Code(s): F41.9 - Anxiety disorder, unspecified Status: Chronic Assessment and Plan: Home clonazepam, bupropion and paroxetine resumed. (6) Tobacco dependence: Code(s): F17.200 - Nicotine dependence, unspecified, uncomplicated Status: Chronic Assessment and Plan: Counseled on cessation prior to intubation. Cessation imperative. (7) Acute renal failure: Code(s): N17.9 - Acute kidney failure, unspecified Status: Acute Assessment and Plan: Creatinine has increased from 0.7 yesterday to 1.6 today. Poor urine output reported per RN. I have given 1 L of IV fluid bolus and will continue IV fluids. Patient is already on tube feeds per goal. Creatnine has improved to 1.3 this am with good UO. (8) DVT prophylaxis: Code(s): Z29.9 - Encounter for prophylactic measures, unspecified Status: Acute Assessment and Plan: will place on sq lovenox Additional Plan Plan of care d/w family at bedside . Time Spent With Patient Time: CCT- 45 min Subjective Date/time seen: 03/21/19 14:36- off levophed overnight . Patient has been having intermittent runs of a severe tachycardia agitation and hypertension. Sedation has been weaned down with the fentanyl going at 25 mics an hour and Precedex going at max doses of 1.5 mics per kg per hour. Patient has been placed on scheduled clonazepam And p.r.n. Ativan. Unable to do vent weaning due to severe agitation. Interval history: 68yo male admitted with acute on chronic respiratory failure, COPD exacerbation, septic shock. Review of Systems Review of Systems: ROS unobtainable: unobtainable due to endotracheal tube Constitutional: Constitutional: Reports fatigue (increased) Exam Const: General: no acute distress, alert, anxious and ill appearing acutely and chronically Nutritional Appearance: average body habitus and thin Other: mild distress HENMT: Head: normal to inspection General nose exam: Normal external nose present Face and sinus: normal facial exam Mouth: Yes Normal oral and palatal mucosa present and Yes oropharynx normal Other: ET/OG tubes in place Eyes: Pupils: Equal, round and reactive pupils present EOM: EOMs intact bilaterally Neck: Neck: normal visual inspection, supple and no JVD Thyroid: thyroid normal Lymphatic: lymphadenopathy not noted Chest: Oth
--- NOTE | 2019-03-21 19:58 | PM.IMPN ---
Progress Note: A&P Assessment and Plan (1) Acute and chronic respiratory failure with hypercapnia: Code(s): J96.22 - Acute and chronic respiratory failure with hypercapnia Status: Acute Assessment and Plan: Now sedated and intubated. Ventilator management per lead shop operator. Continue IV steroids, IV antibiotics and nebulizer treatments. Will monitor. Appreciate intensivsit input. (2) COPD exacerbation: Code(s): J44.1 - Chronic obstructive pulmonary disease with (acute) exacerbation Status: Acute Assessment and Plan: Now on mechanical ventilation as noted above. Continue nebulizer treatments, IV abx and IV steroids. (3) Septic shock: Code(s): A41.9 - Sepsis, unspecified organism; R65.21 - Severe sepsis with septic shock Status: Resolved Assessment and Plan: BP stable on Levophed. Weaning slowly. Blood culture NGTD. UCx negative. MRSA nasal swab also negative. Sputum growing yeast of unclear significnace. Continue IV ceftriaxone and azithromycin. WBC better at 18K today. Appreciate intensivisit input. (4) HTN (hypertension): Qualifiers: Hypertension type: unspecified Qualified Code(s): I10 - Essential (primary) hypertension Code(s): I10 - Essential (primary) hypertension Status: Chronic Assessment and Plan: BP reviewed on 03/21/19. BP mostly well controlled. Continue to hold home amlodipine and valsartan. (5) Depression: Qualifiers: Depression Type: other depression Qualified Code(s): F32.89 - Other specified depressive episodes Code(s): F32.9 - Major depressive disorder, single episode, unspecified Status: Chronic Assessment and Plan: Home abilify, bupropion and paroxetine resumed. Takes Clonazepam at home prn but now scheduled. (6) Anxiety: Code(s): F41.9 - Anxiety disorder, unspecified Status: Chronic Assessment and Plan: As above. (7) Tobacco dependence: Code(s): F17.200 - Nicotine dependence, unspecified, uncomplicated Status: Chronic Assessment and Plan: Counseled on tobacco cessation prior to intubation. Cessation imperative. Will reinforce once able. (8) DVT prophylaxis: Code(s): Z29.9 - Encounter for prophylactic measures, unspecified Status: Acute Assessment and Plan: Lovenox Subjective Date/time seen: 03/21/19 19:58 Interval history: 68yo male admitted with acute on chronic respiratory failure, COPD exacerbation, septic shock. Currently intubated and sedated so unable to provide hx. Review of Systems Review of Systems: ROS unobtainable: unobtainable due to endotracheal tube Exam Narrative: Exam Narrative: Gen - intuabted and sedated HEENT - ETT and OG secured Chest - few scattered anterio wheezing. Distant BS in the flanks. CV - RRR S1/S2; Tele showing episodes of probable sinus tachycardia. Abd - soft +BS - Torrez secured draining clear yellow urine Ext - no pedal edema. Right femoral TLC in place. 2+ DP bilaterally Neuro - sedate but responds to voice by opeing eyes. Skin - warm and dry Objective Data Vital Signs Vital Signs: Vital Signs - 24 hr 03/20/19 20:00 03/20/19 20:30 03/20/19 20:40 Temperature 98.7 F Pulse Rate 79 98 105 H Respiratory Rate 16 16 18 Blood Pressure 122/72 Pulse Oximetry 96 95 03/20/19 22:00 03/20/19 23:00 03/21/19 00:00 Temperature 98.5 F Pulse Rate 94 97 85 Respiratory Rate 16 20 Blood Pressure 112/72 103/67 Pulse Oximetry 97 96 96 03/21/19 02:00 03/21/19 02:15 03/21/19 02:25 Temperature Pulse Rate 77 78 78 Respiratory Rate 16 16 16 Blood Pressure 95/57 L Pulse Oximetry 94 96 03/21/19 04:00 03/21/19 05:25 03/21/19 06:00 Temperature 98.5 F Pulse Rate 77 77 80 Respiratory Rate 14 16 Blood Pressure 87/63 L 98/78 L Pulse Oximetry 96 96 96 03/21/19 07:55 03/21/19 08:00 03/21/19 08:
[2019-03-21 23:40] LABS: Glucose Point of Care 122 (65-105)
[2019-03-22] VITALS (27 sets, daily range): BP systolic 76–178; BP diastolic 57–108; PULSE 68–153; RESP 16–30; TEMP 36.8–37.4; O2SAT 92–98
[2019-03-22] MEDS: LORAZEPAM INJ 2 MG/ML VIAL IV PUSH (01:57)
[2019-03-22] MEDS: IPRATROPIUM BR 0.02% INH SOLN 0.5 MG/2.5 ML VIAL INHALATION ×4 (02:00→20:20)
[2019-03-22] MEDS: ALBUTEROL SULFATE NEB 2.5 MG/0.5 ML INH 5 MG INHALATION ×4 (02:00→20:20)
[2019-03-22] MEDS: CLONAZEPAM 0.5 MG TAB 1 MG PO ×3 (04:56→17:10)
[2019-03-22] MEDS: methylPREDNISolone SOD SUCC 40 MG VIAL IV PUSH ×2 (04:57→17:11)
[2019-03-22 05:00] LABS: Alveolar/Arterial O2 Gradient 77.3 mmHg; Base Excess ABG -0.2 mEq/l (+/-2.0); Fractional Inspired Oxygen 30 %; HCO3 ABG 26.2 mEq/l (22.0-26.0); Modified Allen's Test Pass; Oxygen Content ABG 16.1 %vol (16.0-22.0); Oxygen Saturation ABG 94.7 % (95.0-100.0); Oxyhemoglobin 93.5 % THb (90.0-100.0); PO2 ABG 77.9 mmHg (80.0-100.0); Site Drawn LEFT RADIAL; Total Hemoglobin 12.2 g/dL (12.0-18.0); pH ABG 7.337 (7.350-7.450)
[2019-03-22 05:01] LABS: Arterial Blood Gas PEEP 6 cmH2O; Arterial Blood Gas Tidal Volume 350 ml; Arterial Blood Gas Vent Mode CMV; Arterial Blood Gas Ventilator rate 16 /MIN; Device VENTILATOR
[2019-03-22 05:07] LABS: Glucose Point of Care 146 (65-105)
[2019-03-22 05:27] LABS: Basophils Percent Auto 0.1 % (0.2-1.2); Hematocrit 34.6 % (42.0-52.0); Hemoglobin 10.9 g/dL (14.0-18.0); Immature Granulocyte Absolute 0.06 K/mm3 (0.00-0.031); Immature Granulocyte Percent A 0.5 % (0-0.5); Lymphocytes Percent Auto 1.6 % (18.3-44.2); Mean Corpuscular HGB Conc 31.5 g/dl (32-36); Mean Corpuscular Hemoglobin 31.2 pg (26-34); Mean Corpuscular Volume 99.1 fl (80-100); Mean Platelet Volume 9.4 fl (7.4-10.4); Monocytes Percent Auto 7.8 % (2.6-8.5); Neutrophils Absolute Auto 11.6 K/mm3 (1.3-6.7); Platelet Count Result 250 k/mm3 (150-375); Red Blood Count 3.49 M/mm3 (4.6-6.20); Red Cell Distribution Width 15.1 % (11.5-14.5); White Blood Count 12.9 K/mm3 (4.5-10.0)
[2019-03-22 05:36] LABS: Alanine Aminotransferase 23 U/L (4-50); Alkaline Phosphatase 68 U/L (38-126); Aspartate Amino Transferase 55 U/L (17-59); Bilirubin,Total 0.1 mg/dL (0.2-1.3); Blood Urea Nitrogen 40 mg/dL (9-20); Calcium 8.6 mg/dL (8.4-10.2); Carbon Dioxide 27 mmol/L (22-30); Chloride 98 mmol/L (98-107); Estimated CRCL calculation 54 ml/min; Estimated Glomerular Filt Rate > 60; Glucose 139 mg/dL (75-110); Magnesium 2.3 mg/dL (1.6-2.3); Phosphorus 2.3 mg/dL (2.5-4.5); Potassium 4.6 mmol/L (3.4-5.0); Sodium 132 mmol/L (137-145)
[2019-03-22] MEDS: SODIUM CHLORIDE 0.9% IV 1,000 ML 120 ML IV CONT (05:50)
[2019-03-22] MEDS: FAMOTIDINE 20 MG TABLET FEED TUBE ×2 (09:36→20:44)
[2019-03-22] MEDS: buPROPion HCL XL (24 HR) 150 MG TABCR 300 MG PO (09:36)
[2019-03-22] MEDS: ARIPIPRAZOLE 2 MG TABLET PO (09:36)
[2019-03-22] MEDS: QUEtiapine FUMARATE 25 MG TABLET PO ×2 (09:36→20:44)
[2019-03-22] MEDS: ENOXAPARIN 40 MG/0.4 ML SYRINGE SUB-Q (09:36)
[2019-03-22] MEDS: PAROXETINE 20 MG TABLET 40 MG PO (09:37)
[2019-03-22] MEDS: MIDAZOLAM HCL 2 MG/2 ML VIAL IV PUSH ×2 (10:08→13:17)
--- NOTE | 2019-03-22 11:22 | PM.IMPN ---
Progress Note: A&P Assessment and Plan (1) Acute and chronic respiratory failure with hypercapnia: Code(s): J96.22 - Acute and chronic respiratory failure with hypercapnia Status: Acute Assessment and Plan: Currently sedated and intubated. Ventilator management per inspector assembly. Having difficulty weaning sedation due to severe anxiety. Continue IV steroids, IV antibiotics and nebulizer treatments. Will monitor. Appreciate intensivsit input. (2) COPD exacerbation: Code(s): J44.1 - Chronic obstructive pulmonary disease with (acute) exacerbation Status: Acute Assessment and Plan: Remains on mechanical ventilation as noted above. Continue nebulizer treatments, IV abx and IV steroids (3) Septic shock: Code(s): A41.9 - Sepsis, unspecified organism; R65.21 - Severe sepsis with septic shock Status: Resolved Assessment and Plan: Off Levophed fabric worker foreman hours on 03/21/19. Blood culture NGTD. UCx negative. MRSA nasal swab also negative. Sputum growing yeast of unclear significanace. Continue IV ceftriaxone and azithromycin. WBC continues to trend down and at 13K today. Appreciate intensivisit input. (4) Anxiety: Code(s): F41.9 - Anxiety disorder, unspecified Status: Chronic Assessment and Plan: Patietn with severe anxiety. Home abilify, bupropion and paroxetine resumed. Takes Clonazepam at home prn but now scheduled. Seroquel added as well to try to control anxiety. (5) HTN (hypertension): Qualifiers: Hypertension type: unspecified Qualified Code(s): I10 - Essential (primary) hypertension Code(s): I10 - Essential (primary) hypertension Status: Chronic Assessment and Plan: BP reviewed on 03/22/19. BP up and down related to his anxiety level. Continue to hold home amlodipine and valsartan for now. (6) Depression: Qualifiers: Depression Type: other depression Qualified Code(s): F32.89 - Other specified depressive episodes Code(s): F32.9 - Major depressive disorder, single episode, unspecified Status: Chronic Assessment and Plan: As above. (7) Tobacco dependence: Code(s): F17.200 - Nicotine dependence, unspecified, uncomplicated Status: Chronic Assessment and Plan: Counseled on tobacco cessation prior to intubation. Cessation imperative. Will reinforce once able. (8) DVT prophylaxis: Code(s): Z29.9 - Encounter for prophylactic measures, unspecified Status: Acute Assessment and Plan: Lovenox Additional Plan ABd distention - KUB ordered showing dilated loops of SB probably ileus. Dulcolax suppository given with good results. COntinue to follow. TF on hold. Subjective Date/time seen: 03/22/19 11:22 Interval history: 68yo male admitted with acute on chronic respiratory failure, COPD exacerbation, septic shock. Currently intubated and sedated so unable to provide hx. Fentanyl turned off. Still on Precedex. TF held for possibly extubation but also noted to have abd distention. Review of Systems Review of Systems: ROS unobtainable: unobtainable due to endotracheal tube Exam Narrative: Exam Narrative: Gen - intuabted and sedated HEENT - ETT and OG secured Chest - poor air exchange with expiratory wheezing. CV - RRR S1/S2; Tele occasional sinus tach Abd - firm, distended and tympanitic. +BS - Torrez secured draining clear yellow urine Ext - mild diffuse edema. Right femoral TLC in place. Neuro - sedate but responds to voice by opening eyes. Skin - warm and dry Objective Data Vital Signs Vital Signs: Vital Signs - 24 hr 03/21/19 12:00 03/21/19 13:02 03/21/19 13:39 Temperature 101.5 F H 101.5 F H Pulse Rate 92 87 Respiratory Rate 25 H 15 Blood Pressure 125/79 Pulse Oximetry 96 03/21/19 13:42 03/21/19 13:47 03/21/19 14:00 Temperature Pulse Rate 86 86 88 Respiratory
[2019-03-22] MEDS: FUROSEMIDE INJ 40 MG/4 ML VIAL IV PUSH (12:26)
[2019-03-22] MEDS: BISACODYL 10 MG SUPPOSITORY RECTAL (12:26)
[2019-03-22 12:35] LABS: Glucose Point of Care 134 (65-105)
--- NOTE | 2019-03-22 12:40 | WPDINTPN ---
Progress Note: A&P Assessment and Plan (1) Acute and chronic respiratory failure with hypercapnia: Code(s): J96.22 - Acute and chronic respiratory failure with hypercapnia Status: Acute Assessment and Plan: patient presented with acute on chronic respiratory with increased work of breathing and was intubated on 03/19/2019. - Patient on CMV mode of ventilation, 30% FiO2 - history of COPD /emphysema. Chest x-ray does not show any pneumonia or pulmonary vascular congestion. - Continue bronchodilators, ceftriaxone and azithromycin, Solu-Medrol - patient still not moving much air, continue current settings (2) COPD exacerbation: Code(s): J44.1 - Chronic obstructive pulmonary disease with (acute) exacerbation Status: Acute Assessment and Plan: Now on ventilators noted above. Continue nebulizer treatments and IV steroids. Also on IV antibiotics. (3) Septic shock: Code(s): A41.9 - Sepsis, unspecified organism; R65.21 - Severe sepsis with septic shock Status: Resolved Assessment and Plan: blood, urine and MRSA cultures are negative - sputum cultures growing Yeast and gram-positive cocci in pairs - patient was adequately fluid resuscitated in the ED, off Levophed - continue antibiotics as above, - renal function has improved, patient with good urine output, - significantly positive fluid balance, will discontinue IV fluids (4) Depression: Qualifiers: Depression Type: other depression Qualified Code(s): F32.89 - Other specified depressive episodes Code(s): F32.9 - Major depressive disorder, single episode, unspecified Status: Chronic Assessment and Plan: continue Abilify, bupropion, paroxetine, clonazepam which are his home meds. (5) Anxiety: Code(s): F41.9 - Anxiety disorder, unspecified Status: Chronic Assessment and Plan: Continue medications as above. - Patient currently on Precedex infusion, still remains significantly anxious, will add low-dose Seroquel (6) Tobacco dependence: Code(s): F17.200 - Nicotine dependence, unspecified, uncomplicated Status: Chronic Assessment and Plan: will senior genetic counselor patient on cessation of smoking once extubated, Cessation is imperative. (7) Acute renal failure: Code(s): N17.9 - Acute kidney failure, unspecified Status: Acute Assessment and Plan: RESOLVED: patient presented with acute kidney injury likely related to decreased oral intake, hypovolemia, septic shock. - Patient has been adequately fluid-resuscitated, urine output has been adequate, patient is in positive fluid balance, will discontinue IV fluids - creatinine is back to normal at 0.9 - continue to monitor renal function, electrolytes and urine output (8) DVT prophylaxis: Code(s): Z29.9 - Encounter for prophylactic measures, unspecified Status: Acute Assessment and Plan: DVT prophylaxis; Lovenox stress ulcer prophylaxis: famotidine (9) Ileus: Code(s): K56.7 - Ileus, unspecified Status: Acute Assessment and Plan: patient's abdominal was firm, obstructive series was done showed possible ileus but no small-bowel obstruction. - NG tube was okay to low intermittent suction - Dulcolax suppository given the patient - will continue to monitor Additional Plan discussed with at bedside and updated her with patient's condition and plan of care. I answered all questions Code status: Full code Critical care time spent: 36 minutes Due to a high probability of clinically significant, life threatening deterioration, the patient required my highest level of preparedness to intervene emergently and I personally spent this critical care time directly and personally managing the patient. This critical care time included obtaining a history; examining the patient; pulse oximetry; ordering and review of studies; arrangi
[2019-03-22] MEDS: methylPREDNISolone SOD SUCC 125 MG VIAL IV PUSH (13:17)
--- NOTE | 2019-03-22 13:24 | PCDIET ---
ICU Rounding Note: Tube feedings held for SBT. Patient previously tolerating at goal rate with residuals 160mL and below. MD ordered KUB due to abdominal distention. Last recorded weight is 53.6kg which is stable. Bowel Motility: No documented bowel movements. MD obtaining KUB. Labs Reviewed: Glu (146), BUN (40), Na (132), Alb (3.0), PO4 (2.3) Meds Noted: Albuterol, Rocephin, Precedex, Pepcid, Fentanyl, Novolog, Solu Medrol, Levophed Additional Notes: No documented skin breakdown. Expect tube feedings to resume pending KUB. Following daily in ICU rounds. Assessing/reassessing every Tuesday/Tuesday.
[2019-03-22] MEDS: MIDAZOLAM HCL 50 MG in DEXTROSE 5% 90 ML IV CONT (15:47)
[2019-03-22 17:45] LABS: Glucose Point of Care 123 (65-105)
[2019-03-22] MEDS: NOREPINEPHRINE 8 MG/D5W 250 ML 8 MG/250 ML BAG 9.4 MG IV CONT (21:58)
[2019-03-23] VITALS (28 sets, daily range): BP systolic 87–123; BP diastolic 53–85; PULSE 74–140; RESP 16–18; TEMP 36.5–37.2; O2SAT 93–97
[2019-03-23] MEDS: methylPREDNISolone SOD SUCC 40 MG VIAL IV PUSH ×4 (00:02→17:07)
[2019-03-23] MEDS: CLONAZEPAM 0.5 MG TAB 1 MG PO ×4 (00:03→17:11)
[2019-03-23 00:13] LABS: Glucose Point of Care 146 (65-105)
[2019-03-23] MEDS: IPRATROPIUM BR 0.02% INH SOLN 0.5 MG/2.5 ML VIAL INHALATION ×4 (02:20→20:40)
[2019-03-23] MEDS: ALBUTEROL SULFATE NEB 2.5 MG/0.5 ML INH 5 MG INHALATION ×4 (02:20→20:40)
[2019-03-23 04:52] LABS: Alveolar/Arterial O2 Gradient 55.1 mmHg; Base Excess ABG 4.6 mEq/l (+/-2.0); Carboxyhemoglobin 0.3 % THb (0-2.0); Fractional Inspired Oxygen 30 %; HCO3 ABG 30.1 mEq/l (22.0-26.0); Methemoglobin ABG 0.6 %THb (0-1.5); Oxygen Content ABG 16.2 %vol (16.0-22.0); Oxygen Saturation ABG 97.6 % (95.0-100.0); PCO2 ABG 48.9 mmHg (35.0-45.0); PO2 ABG 101.3 mmHg (80.0-100.0); PO2 FiO2 Ratio Arterial Blood 3.38 %; Reduced Hemoglobin 3.1 %THb (0-5.0); Total Hemoglobin 11.9 g/dL (12.0-18.0); pH ABG 7.407 (7.350-7.450)
[2019-03-23 04:54] LABS: Device VENTILATOR; Modified Allen's Test Pass; Site Drawn RIGHT RADIAL
[2019-03-23 04:55] LABS: Arterial Blood Gas PEEP 5 cmH2O; Arterial Blood Gas Tidal Volume 350 ml; Arterial Blood Gas Vent Mode CMV; Arterial Blood Gas Ventilator rate 16 /MIN
[2019-03-23 06:15] LABS: Glucose Point of Care 136 (65-105)
[2019-03-23] MEDS: MIDAZOLAM HCL 50 MG in DEXTROSE 5% 90 ML 6 MG IV CONT ×2 (06:15→20:53)
[2019-03-23 06:43] LABS: Hematocrit 32.4 % (42.0-52.0); Hemoglobin 10.4 g/dL (14.0-18.0); Mean Corpuscular HGB Conc 32.1 g/dl (32-36); Mean Corpuscular Volume 96.7 fl (80-100); Mean Platelet Volume 9.4 fl (7.4-10.4); Platelet Count Result 252 k/mm3 (150-375); Red Blood Count 3.35 M/mm3 (4.6-6.20); White Blood Count 15.2 K/mm3 (4.5-10.0)
[2019-03-23 06:55] LABS: Blood Urea Nitrogen 38 mg/dL (9-20); Calcium 8.7 mg/dL (8.4-10.2); Carbon Dioxide 34 mmol/L (22-30); Chloride 95 mmol/L (98-107); Estimated CRCL calculation 64 ml/min; Estimated Glomerular Filt Rate > 60; Glucose 124 mg/dL (75-110); Magnesium 2.2 mg/dL (1.6-2.3); Phosphorus 2.5 mg/dL (2.5-4.5); Potassium 4.4 mmol/L (3.4-5.0); Sodium 133 mmol/L (137-145)
[2019-03-23] MEDS: buPROPion HCL XL (24 HR) 150 MG TABCR 300 MG PO (08:39)
[2019-03-23] MEDS: ENOXAPARIN 40 MG/0.4 ML SYRINGE SUB-Q (08:39)
[2019-03-23] MEDS: ARIPIPRAZOLE 2 MG TABLET PO (08:39)
[2019-03-23] MEDS: QUEtiapine FUMARATE 25 MG TABLET PO ×2 (08:40→20:20)
[2019-03-23] MEDS: PAROXETINE 20 MG TABLET 40 MG PO (08:40)
[2019-03-23] MEDS: FAMOTIDINE 20 MG TABLET FEED TUBE ×2 (08:40→20:20)
[2019-03-23 12:02] LABS: Glucose Point of Care 110 (65-105)
--- NOTE | 2019-03-23 15:06 | PCDIET ---
Nutrition Follow-Up Complete: Nutrition Diagnosis: Inadequate oral intake related to oral intubation as evidenced by NPO status. Nutrition Goal: Patient to meet estimated nutritional needs. Goal not met. Tube feedings held due to possible ileus. Abdomen firm and distended, per nursing notes; however, patient has had several BMs. Reported during rounding that NG output was 150mL so far on AM shift. MD to obtain obstructive series and resume tube feedings at low rate, if able. Last recorded weight is 64 kg which is significantly increased. Recommend re-weighing patient to ensure accurate. Bowel Motility: +BM x 4 today (liquid) Labs Reviewed: Glu (136), BUN (38), Na (133) Meds Noted: Rocephin, Pepcid, Fentanyl, Levophed, Novolog, Solu Medrol, Versed Additional Notes: Buttocks macerated. No other skin issues reported. Recommend resuming tube feedings once medically appropriate. Will continue to monitor with same goal. Nutrition Monitoring and Evaluation; Follow up every Tuesday/Tuesday. Follow daily in ICU rounds.
--- NOTE | 2019-03-23 15:18 | WPDINTPN ---
Progress Note: A&P Assessment and Plan (1) Acute and chronic respiratory failure with hypercapnia: Code(s): J96.22 - Acute and chronic respiratory failure with hypercapnia Status: Acute Assessment and Plan: patient presented with acute on chronic respiratory with increased work of breathing and was intubated on 03/19/2019. - Patient on CMV mode of ventilation, 30% FiO2 - history of COPD /emphysema. Chest x-ray does not show any pneumonia or pulmonary vascular congestion. - Continue bronchodilators, ceftriaxone and azithromycin, Solu-Medrol - patient still not moving much air, likely due to inflammation secondary to COPD exacerbation - Pulmonology to evaluate the patient (2) COPD exacerbation: Code(s): J44.1 - Chronic obstructive pulmonary disease with (acute) exacerbation Status: Acute Assessment and Plan: Now on ventilator noted above. Continue nebulizer treatments and IV steroids. Also on IV antibiotics. (3) Septic shock: Code(s): A41.9 - Sepsis, unspecified organism; R65.21 - Severe sepsis with septic shock Status: Resolved Assessment and Plan: blood, urine and MRSA cultures are negative - sputum cultures growing Yeast and gram-positive cocci in pairs - patient was adequately fluid resuscitated in the ED, - continue Levophed maintain mean arterial pressures > 65 mmHg - continue antibiotics as above, - renal function has improved, patient with good urine output, - significantly positive fluid balance, off IV fluids (4) Depression: Qualifiers: Depression Type: other depression Qualified Code(s): F32.89 - Other specified depressive episodes Code(s): F32.9 - Major depressive disorder, single episode, unspecified Status: Chronic Assessment and Plan: continue Abilify, bupropion, paroxetine, clonazepam which are his home meds. (5) Anxiety: Code(s): F41.9 - Anxiety disorder, unspecified Status: Chronic Assessment and Plan: Continue medications as above. - Patient currently on Precedex infusion, still remains significantly anxious, will add low-dose Seroquel (6) Tobacco dependence: Code(s): F17.200 - Nicotine dependence, unspecified, uncomplicated Status: Chronic Assessment and Plan: will vocational counselor patient on cessation of smoking once extubated, Cessation is imperative. (7) Acute renal failure: Code(s): N17.9 - Acute kidney failure, unspecified Status: Acute Assessment and Plan: RESOLVED: patient presented with acute kidney injury likely related to decreased oral intake, hypovolemia, septic shock. - creatinine is back to normal at 0.9 - continue to monitor renal function, electrolytes and urine output (8) DVT prophylaxis: Code(s): Z29.9 - Encounter for prophylactic measures, unspecified Status: Acute Assessment and Plan: DVT prophylaxis; Lovenox stress ulcer prophylaxis: famotidine (9) Ileus: Code(s): K56.7 - Ileus, unspecified Status: Acute Assessment and Plan: patient's abdominal was firm, obstructive series was done showed possible ileus but no small-bowel obstruction. - NG tube was okay to low intermittent suction - Dulcolax suppository given the patient - will continue to monitor Additional Plan discussed with and son at bedside and updated them with patient's condition and plan of care. I answered all questions Code status: Full code Critical care time spent: 33 minutes Due to a high probability of clinically significant, life threatening deterioration, the patient required my highest level of preparedness to intervene emergently and I personally spent this critical care time directly and personally managing the patient. This critical care time included obtaining a history; examining the patient; pulse oximetry; ordering and review of studies; arranging urgent treatment with
--- NOTE | 2019-03-23 15:20 | PM.IMPN ---
Progress Note: A&P Assessment and Plan (1) Acute and chronic respiratory failure with hypercapnia: Code(s): J96.22 - Acute and chronic respiratory failure with hypercapnia Status: Acute Assessment and Plan: Currently sedated and intubated. Ventilator management per director of database marketing. Having difficulty weaning sedation due to severe anxiety. Continue IV steroids, IV antibiotics and nebulizer treatments. Will monitor. Discussed with director of database marketing. (2) COPD exacerbation: Code(s): J44.1 - Chronic obstructive pulmonary disease with (acute) exacerbation Status: Acute Assessment and Plan: Remains on mechanical ventilation as noted above. Continue nebulizer treatments, IV abx and IV steroids (3) Septic shock: Code(s): A41.9 - Sepsis, unspecified organism; R65.21 - Severe sepsis with septic shock Status: Resolved Assessment and Plan: Off Levophed chief of safety and protection hours on 03/21/19. BP soft at times but could be related to sedation. Blood culture NGTD. UCx negative. MRSA nasal swab also negative. Sputum growing yeast of unclear significance. Continue IV ceftriaxone and azithromycin. WBC back up to 15K today but CRP 2 yesterday. Appreciate director of database marketing input. (4) Anxiety: Code(s): F41.9 - Anxiety disorder, unspecified Status: Chronic Assessment and Plan: Patietn with severe anxiety. Home abilify, bupropion and paroxetine resumed. Takes Clonazepam at home prn but now scheduled. Seroquel added as well to try to control anxiety. (5) HTN (hypertension): Qualifiers: Hypertension type: unspecified Qualified Code(s): I10 - Essential (primary) hypertension Code(s): I10 - Essential (primary) hypertension Status: Chronic Assessment and Plan: BP reviewed on 03/23/19. BP up and down related to his anxiety level and sedation. Continue to hold home amlodipine and valsartan for now. (6) Depression: Qualifiers: Depression Type: other depression Qualified Code(s): F32.89 - Other specified depressive episodes Code(s): F32.9 - Major depressive disorder, single episode, unspecified Status: Chronic Assessment and Plan: As above. (7) Tobacco dependence: Code(s): F17.200 - Nicotine dependence, unspecified, uncomplicated Status: Chronic Assessment and Plan: Counseled on tobacco cessation prior to intubation. Cessation imperative. Will reinforce once able. (8) DVT prophylaxis: Code(s): Z29.9 - Encounter for prophylactic measures, unspecified Status: Acute Assessment and Plan: Lovenox Additional Plan ABd distention - KUB showing probably ileus. Dulcolax suppository given with good results. Repeat KUB ordered showing mildly dilated loops. Subjective Date/time seen: 03/23/19 15:20 Interval history: 68yo male admitted with acute on chronic respiratory failure, COPD exacerbation, septic shock. Currently intubated and sedated so unable to provide hx. More agitated yesterday requiring Fentyl and Versed. Multiple BMs. Tube feeding still on hold. Exam Narrative: Exam Narrative: Gen - intuabted and sedated HEENT - ETT and OG secured Chest - distant, coarse BS with expiratory wheezing CV - RRR S1/S2; Tele showing occasional sinus tach Abd - firm but softer and less distended. +BS - Torrez secured draining clear yellow urine Ext - no pedal edema Neuro - sedated but does arouse with voice. Skin - warm and dry Objective Data Vital Signs Vital Signs: Vital Signs - 24 hr 03/22/19 16:00 03/22/19 17:35 03/22/19 18:00 Temperature 98.9 F Pulse Rate 93 78 153 H Respiratory Rate 16 30 H Blood Pressure 93/66 L 178/108 H Pulse Oximetry 96 96 92 03/22/19 19:50 03/22/19 20:00 03/22/19 20:05 Temperature 99.4 F Pulse Rate 110 H 98 103 H Respiratory Rate 16 18 16 Blood Pressure 98/64 L Pulse Oximetry 94 92 03/22/19
[2019-03-23 18:51] LABS: Glucose Point of Care 113 (65-105)
[2019-03-24] VITALS (27 sets, daily range): BP systolic 87–131; BP diastolic 60–85; PULSE 67–124; RESP 12–19; TEMP 36.4–37.2; O2SAT 91–100
[2019-03-24 00:25] LABS: Glucose Point of Care 128 (65-105)
[2019-03-24] MEDS: methylPREDNISolone SOD SUCC 40 MG VIAL IV PUSH ×4 (00:26→23:53)
[2019-03-24] MEDS: CLONAZEPAM 0.5 MG TAB 1 MG PO ×4 (00:26→23:52)
[2019-03-24] MEDS: IPRATROPIUM BR 0.02% INH SOLN 0.5 MG/2.5 ML VIAL INHALATION ×4 (01:43→20:09)
[2019-03-24] MEDS: ALBUTEROL SULFATE NEB 2.5 MG/0.5 ML INH 5 MG INHALATION ×4 (01:43→20:09)
[2019-03-24 04:37] LABS: Base Excess ABG 3.4 mEq/l (+/-2.0); Carboxyhemoglobin 0.2 % THb (0-2.0); Fractional Inspired Oxygen 30 %; Methemoglobin ABG 0.5 %THb (0-1.5); Oxygen Content ABG 15.8 %vol (16.0-22.0); Oxygen Saturation ABG 97.9 % (95.0-100.0); Oxyhemoglobin 96.2 % THb (90.0-100.0); PCO2 ABG 42.3 mmHg (35.0-45.0); PO2 ABG 104.2 mmHg (80.0-100.0); PO2 FiO2 Ratio Arterial Blood 3.47 %; Reduced Hemoglobin 3.1 %THb (0-5.0); Total Hemoglobin 11.6 g/dL (12.0-18.0); pH ABG 7.438 (7.350-7.450)
[2019-03-24 04:39] LABS: Device VENTILATOR; Modified Allen's Test Pass; Site Drawn RIGHT RADIAL
[2019-03-24 04:40] LABS: Arterial Blood Gas PEEP 5 cmH2O; Arterial Blood Gas Tidal Volume 350 ml; Arterial Blood Gas Vent Mode CMV; Arterial Blood Gas Ventilator rate 16 /MIN
[2019-03-24 05:12] LABS: Glucose Point of Care 118 (65-105)
[2019-03-24 05:15] LABS: Hematocrit 35.2 % (42.0-52.0); Hemoglobin 11.1 g/dL (14.0-18.0); Mean Corpuscular HGB Conc 31.5 g/dl (32-36); Mean Corpuscular Hemoglobin 30.9 pg (26-34); Mean Corpuscular Volume 98.1 fl (80-100); Mean Platelet Volume 9.7 fl (7.4-10.4); Platelet Count Result 290 k/mm3 (150-375); Red Blood Count 3.59 M/mm3 (4.6-6.20); White Blood Count 17.1 K/mm3 (4.5-10.0)
[2019-03-24 05:34] LABS: Blood Urea Nitrogen 31 mg/dL (9-20); Calcium 8.8 mg/dL (8.4-10.2); Carbon Dioxide 32 mmol/L (22-30); Chloride 91 mmol/L (98-107); Estimated CRCL calculation 64 ml/min; Estimated Glomerular Filt Rate > 60; Glucose 119 mg/dL (75-110); Magnesium 2.1 mg/dL (1.6-2.3); Phosphorus 3.9 mg/dL (2.5-4.5); Potassium 4.1 mmol/L (3.4-5.0); Sodium 135 mmol/L (137-145)
[2019-03-24] MEDS: ARIPIPRAZOLE 2 MG TABLET PO (09:05)
[2019-03-24] MEDS: buPROPion HCL XL (24 HR) 150 MG TABCR 300 MG PO (09:05)
[2019-03-24] MEDS: QUEtiapine FUMARATE 25 MG TABLET PO ×2 (09:06→20:09)
[2019-03-24] MEDS: PAROXETINE 20 MG TABLET 40 MG PO (09:06)
[2019-03-24] MEDS: FAMOTIDINE 20 MG TABLET FEED TUBE ×2 (09:06→20:09)
[2019-03-24] MEDS: ENOXAPARIN 40 MG/0.4 ML SYRINGE SUB-Q (09:06)
[2019-03-24] MEDS: FUROSEMIDE INJ 40 MG/4 ML VIAL IV PUSH (09:08)
[2019-03-24] MEDS: METOCLOPRAMIDE HCL INJ 10 MG/2 ML VIAL IV PUSH ×3 (10:51→23:53)
[2019-03-24] MEDS: MIDAZOLAM HCL 50 MG in DEXTROSE 5% 90 ML IV CONT (11:02)
--- NOTE | 2019-03-24 11:30 | PM.IMPN ---
Progress Note: A&P Assessment and Plan (1) Acute and chronic respiratory failure with hypercapnia: Code(s): J96.22 - Acute and chronic respiratory failure with hypercapnia Status: Acute Assessment and Plan: Currently sedated and intubated. Ventilator management per ciaio lumite injector. Having difficulty weaning sedation due to severe anxiety. Continue IV steroids, IV antibiotics and nebulizer treatments. Will monitor. Discussed with ciaio lumite injector. (2) COPD exacerbation: Code(s): J44.1 - Chronic obstructive pulmonary disease with (acute) exacerbation Status: Acute Assessment and Plan: Remains on mechanical ventilation as noted above. Continue nebulizer treatments, IV abx and IV steroids (3) Septic shock: Code(s): A41.9 - Sepsis, unspecified organism; R65.21 - Severe sepsis with septic shock Status: Resolved Assessment and Plan: Patient in on Levophed again. BP soft at times but could be related to sedation which is required due to his severe anxiety. Blood culture NGTD. UCx negative. MRSA nasal swab also negative. Sputum growing yeast of unclear significance. Continue IV ceftriaxone and azithromycin. WBC back up to 17K today. CXR not showing any infiltrates. No diarrhea to suggest CDiff. Monitor WBC for now. Appreciate ciaio lumite injector input. (4) Anxiety: Code(s): F41.9 - Anxiety disorder, unspecified Status: Chronic Assessment and Plan: Patietn with severe anxiety. Home abilify, bupropion and paroxetine resumed. Takes Clonazepam at home prn but now scheduled. Seroquel added as well to try to control anxiety. (5) HTN (hypertension): Qualifiers: Hypertension type: unspecified Qualified Code(s): I10 - Essential (primary) hypertension Code(s): I10 - Essential (primary) hypertension Status: Chronic Assessment and Plan: BP reviewed on 03/24/19. BP up and down related to his anxiety level and sedation. Continue to hold home amlodipine and valsartan for now. (6) Depression: Qualifiers: Depression Type: other depression Qualified Code(s): F32.89 - Other specified depressive episodes Code(s): F32.9 - Major depressive disorder, single episode, unspecified Status: Chronic Assessment and Plan: As above. (7) Tobacco dependence: Code(s): F17.200 - Nicotine dependence, unspecified, uncomplicated Status: Chronic Assessment and Plan: Counseled on tobacco cessation prior to intubation. Cessation imperative. Will reinforce once able. (8) DVT prophylaxis: Code(s): Z29.9 - Encounter for prophylactic measures, unspecified Status: Acute Assessment and Plan: Lovenox Subjective Date/time seen: 03/24/19 11:30 Interval history: 68yo male admitted with acute on chronic respiratory failure, COPD exacerbation, septic shock. Currently intubated and sedated so unable to provide hx. Agitated at times still. Currently on Fentanyl 125 and Versed 3. Levophed at 1. Exam Narrative: Exam Narrative: Gen - intuabted and sedated HEENT - ETT and OG secured Chest - distant bs with expiratory wheeze CV - RRR with distatn S1/S2 Abd - softer, less distended but still tympanitic. - Torrez secured draining clear yellow urine Ext - no pedal edema, right femoral line in place Neuro - sedated but does arouse with voice and becomes agitated Skin - warm and dry Objective Data Vital Signs Vital Signs: Vital Signs - 24 hr 03/23/19 12:00 03/23/19 12:47 03/23/19 14:00 Temperature 98.3 F Pulse Rate 87 97 79 Respiratory Rate 18 16 Blood Pressure 114/85 99/64 L Pulse Oximetry 94 95 03/23/19 14:32 03/23/19 14:50 03/23/19 16:00 Temperature 97.7 F Pulse Rate 79 79 78 Respiratory Rate 16 16 16 Blood Pressure 87/53 L Pulse Oximetry 95 95 03/23/19 17:05 03/23/19 18:00 03/23/19 20:00 Temperature 98.2 F Pulse Rate 132 H 79
--- NOTE | 2019-03-24 12:47 | WPDINTPN ---
Progress Note: A&P Assessment and Plan (1) Acute and chronic respiratory failure with hypercapnia: Code(s): J96.22 - Acute and chronic respiratory failure with hypercapnia Status: Acute Assessment and Plan: patient presented with acute on chronic respiratory with increased work of breathing and was intubated on 03/19/2019. - Patient on CMV mode of ventilation, 30% FiO2 - history of COPD /emphysema. Chest x-ray does not show any pneumonia or pulmonary vascular congestion. - Continue bronchodilators, ceftriaxone and azithromycin, Solu-Medrol - patient moving more air in the lungs today, no wheezing noted. - Will start Precedex infusion, wean Versed and fentanyl infusion - Pulmonology to evaluate the patient (2) COPD exacerbation: Code(s): J44.1 - Chronic obstructive pulmonary disease with (acute) exacerbation Status: Acute Assessment and Plan: Now on ventilator noted above. Continue nebulizer treatments and IV steroids. Also on IV antibiotics. (3) Septic shock: Code(s): A41.9 - Sepsis, unspecified organism; R65.21 - Severe sepsis with septic shock Status: Resolved Assessment and Plan: blood, urine and MRSA cultures are negative - sputum cultures growing Yeast and gram-positive cocci in pairs - patient was adequately fluid resuscitated in the ED, - continue Levophed maintain mean arterial pressures > 65 mmHg - continue antibiotics as above, - renal function has improved, patient with good urine output, - significantly positive fluid balance, off IV fluids (4) Depression: Qualifiers: Depression Type: other depression Qualified Code(s): F32.89 - Other specified depressive episodes Code(s): F32.9 - Major depressive disorder, single episode, unspecified Status: Chronic Assessment and Plan: continue Abilify, bupropion, paroxetine, clonazepam which are his home meds. (5) Anxiety: Code(s): F41.9 - Anxiety disorder, unspecified Status: Chronic Assessment and Plan: Continue medications as above. - Patient currently on Precedex infusion, still remains significantly anxious, continue low-dose Seroquel (6) Tobacco dependence: Code(s): F17.200 - Nicotine dependence, unspecified, uncomplicated Status: Chronic Assessment and Plan: will recreational counselor patient on cessation of smoking once extubated, Cessation is imperative. (7) Acute renal failure: Code(s): N17.9 - Acute kidney failure, unspecified Status: Acute Assessment and Plan: RESOLVED: patient presented with acute kidney injury likely related to decreased oral intake, hypovolemia, septic shock. - creatinine is back to normal at 0.9 - continue to monitor renal function, electrolytes and urine output (8) DVT prophylaxis: Code(s): Z29.9 - Encounter for prophylactic measures, unspecified Status: Acute Assessment and Plan: DVT prophylaxis; Lovenox stress ulcer prophylaxis: famotidine (9) Ileus: Code(s): K56.7 - Ileus, unspecified Status: Acute Assessment and Plan: patient's abdominal was firm, obstructive series was done showed possible ileus but no small-bowel obstruction. - NG tube was okay to low intermittent suction - patient having bowel movements, will restart trickle tube feeds and advance if residuals are within normal limits. Also added Reglan - will continue to monitor Additional Plan discussed with at bedside and updated her with patient's condition and plan of care. I answered all questions Code status: Full code Critical care time spent: 33 minutes Due to a high probability of clinically significant, life threatening deterioration, the patient required my highest level of preparedness to intervene emergently and I personally spent this critical care time directly and personally managing the patient. This critical care time i
[2019-03-24 12:59] LABS: Glucose Point of Care 114 (65-105)
--- NOTE | 2019-03-24 14:21 | PM.CNPUL ---
Assessment and Plan Assessment and plan (1) Acute respiratory failure with hypoxia and hypercapnia: Code(s): J96.01 - Acute respiratory failure with hypoxia; J96.02 - Acute respiratory failure with hypercapnia Status: Acute Assessment and Plan: He has chronic hypercapnic hypoxmeic resp failure, was admitted in Dec and was on BiPAP , still smoking; he has been on the ventilator for 5 days, and has excessive increase in heart rate and anxiety with weaning trials. He has so little reserve that he may not tolerate trials. This may be a situation in which we have to just pull out the tube. The mild increase in respiratory demand with weaning might be more than he can tolerate. His hands are slightly swollen. His prognosis is guarded. (2) Tobacco abuse: Code(s): Z72.0 - Tobacco use Status: Acute Assessment and Plan: Was smoking up until the last admission, was not able to get this information from his at this point. Tobacco cessation is strongly recommended. History of Present Illness History of Present Illness Consult date: 03/26/19 Chief complaint: acute respiratory failure with hypercapnea Narrative: PULMONARY CONSULT consulted by Dr. Stafford for not being able to wean off the vent 68 yo man with COPD with bronchospasm on the vent, mild hypotension ; he desaturates with minimal agitation, requiring sedation with versed and fentanyl. He is on bupropion and clonazepam at home, uses O2 at 2-3L/min. He has not been able to tolerate weaning from the vent as his heart rate increases to 120-130 with weaning trials and decrease in sedation. He has been on 5 days, intubated Feb 3. His tube does not have secretions in it, peak pressures are low, not running a fever. He does not seem to tolerate being weaned with the increased work of breathing. This is associated with anxiety, face becomes red, increased heart rate and respiratory rate. Review of Systems Review of Systems: Narrative: not obtainable form the patient due to intubation, sedation Constitutional: Constitutional: Reports no additional constitutional complaints Eyes: Eyes: Reports no additional eye complaints PMFSH Past Medical History Medical History (Updated 03/26/19 @ 13:40 by Varun An MD) Arthritis Bronchitis Chronic hypoxemic respiratory failure Colon polyps COPD (chronic obstructive pulmonary disease) Depression Hand fracture History of angina HTN (hypertension) Osteomyelitis rt shoulder Pneumonia Sleep apnea Tobacco dependence Surgical History Surgical History Hx of tonsillectomy Hx of vasectomy Family History Family History Mother Family history of lung cancer Patient's mother is Acute myocardial infarction Father Patient's father is Acute myocardial infarction Social History Social History Smoking packs per day: 1 Smoking cigarettes per day: 20.0 Years smoked: 50 Smoking pack-years: 50.00 Smoking status: Current every day smoker Tobacco type: cigarettes Second hand tobacco smoke exposure: No Additional smoking assessment comments: Now smoking 4 cigs per day per family Alcohol intake: never Drinks per week: 1 Substance use: former Substance use type: marijuana Gender identity (if verbalized by the patient): Male Spiritual care concerns: No Agree to blood products: Yes Meds Home Medications and Allergies Home Medications Medication Instructions Recorded Confirmed Type amlodipine 5 mg-valsartan 160 mg 1 tablet PO DAILY #90 tablet 12/25/18 03/19/19 Rx tablet albuterol sulfate 90 mcg/actuation 2 puff INHALATION Q4H PRN 01/04/19 03/19/19 History aerosol
[2019-03-24 17:53] LABS: Glucose Point of Care 103 (65-105)
[2019-03-24 23:43] LABS: Glucose Point of Care 121 (65-105)
[2019-03-25] VITALS (26 sets, daily range): BP systolic 85–158; BP diastolic 54–83; PULSE 72–132; RESP 14–19; TEMP 36.5–37.2; O2SAT 93–98
[2019-03-25] MEDS: IPRATROPIUM BR 0.02% INH SOLN 0.5 MG/2.5 ML VIAL INHALATION ×4 (01:49→20:02)
[2019-03-25] MEDS: ALBUTEROL SULFATE NEB 2.5 MG/0.5 ML INH 5 MG INHALATION ×4 (01:50→20:02)
[2019-03-25 04:36] LABS: Alveolar/Arterial O2 Gradient 493.7 mmHg; Base Excess ABG 6.5 mEq/l (+/-2.0); Carboxyhemoglobin 0.2 % THb (0-2.0); Fractional Inspired Oxygen 100 %; HCO3 ABG 32.3 mEq/l (22.0-26.0); Methemoglobin ABG 0.5 %THb (0-1.5); Oxygen Content ABG 15.6 %vol (16.0-22.0); Oxygen Saturation ABG 99.1 % (95.0-100.0); Oxyhemoglobin 97.4 % THb (90.0-100.0); PCO2 ABG 52.4 mmHg (35.0-45.0); PO2 ABG 166.9 mmHg (80.0-100.0); PO2 FiO2 Ratio Arterial Blood 1.67 %; Reduced Hemoglobin 1.9 %THb (0-5.0); Total Hemoglobin 11.1 g/dL (12.0-18.0); pH ABG 7.408 (7.350-7.450)
[2019-03-25 04:37] LABS: Device VENTILATOR; Modified Allen's Test Unable to perform; Site Drawn LEFT RADIAL
[2019-03-25 04:38] LABS: Arterial Blood Gas Vent Mode CMV; Arterial Blood Gas Ventilator rate 16 /MIN
[2019-03-25 04:39] LABS: Arterial Blood Gas PEEP 5 cmH2O; Arterial Blood Gas Tidal Volume 350 ml
[2019-03-25 05:08] LABS: Mean Corpuscular HGB Conc 32.3 g/dl (32-36); Mean Platelet Volume 9.8 fl (7.4-10.4); Platelet Count Result 286 k/mm3 (150-375); Red Blood Count 3.23 M/mm3 (4.6-6.20); White Blood Count 15.6 K/mm3 (4.5-10.0)
[2019-03-25] MEDS: MIDAZOLAM HCL 50 MG in DEXTROSE 5% 90 ML IV CONT (05:12)
[2019-03-25] MEDS: CLONAZEPAM 0.5 MG TAB 1 MG PO ×4 (05:18→23:29)
[2019-03-25] MEDS: methylPREDNISolone SOD SUCC 40 MG VIAL IV PUSH ×4 (05:19→23:30)
[2019-03-25] MEDS: METOCLOPRAMIDE HCL INJ 10 MG/2 ML VIAL IV PUSH (05:20)
[2019-03-25 05:30] LABS: Blood Urea Nitrogen 38 mg/dL (9-20); Calcium 8.4 mg/dL (8.4-10.2); Carbon Dioxide 37 mmol/L (22-30); Chloride 92 mmol/L (98-107); Estimated CRCL calculation 58 ml/min; Estimated Glomerular Filt Rate > 60; Glucose 127 mg/dL (75-110); Magnesium 2.2 mg/dL (1.6-2.3); Phosphorus 3.5 mg/dL (2.5-4.5); Potassium 4.1 mmol/L (3.4-5.0); Sodium 133 mmol/L (137-145)
[2019-03-25] MEDS: ENOXAPARIN 40 MG/0.4 ML SYRINGE SUB-Q (08:41)
[2019-03-25] MEDS: ARIPIPRAZOLE 2 MG TABLET PO (08:41)
[2019-03-25] MEDS: FAMOTIDINE 20 MG TABLET FEED TUBE ×2 (08:41→20:30)
[2019-03-25] MEDS: PAROXETINE 20 MG TABLET 40 MG PO (08:41)
[2019-03-25] MEDS: QUEtiapine FUMARATE 25 MG TABLET PO ×2 (08:42→23:30)
[2019-03-25] MEDS: buPROPion HCL XL (24 HR) 150 MG TABCR 300 MG PO (08:42)
[2019-03-25] MEDS: polyethylene glycoL 3350 17 GM POWD.PACK PO (12:10)
--- NOTE | 2019-03-25 12:20 | WPDINTPN ---
Progress Note: A&P Assessment and Plan (1) Acute and chronic respiratory failure with hypercapnia: Code(s): J96.22 - Acute and chronic respiratory failure with hypercapnia Status: Acute Assessment and Plan: patient presented with acute on chronic respiratory with increased work of breathing and was intubated on 03/19/2019. - Patient on CMV mode of ventilation, 30% FiO2 - history of COPD /emphysema. Chest x-ray does not show any pneumonia or pulmonary vascular congestion. - Continue bronchodilators, ceftriaxone and azithromycin, Solu-Medrol - patient moving more air in the lungs today, with mild wheezing and rhonchi. - started patient on Precedex infusion. placed patient on pressure support ventilation which he did not tolerate. May have to turn off the sedation altogether and just pulled the tube out with a caveat that he may have to be reintubated if needed - appreciate Pulmonary evaluation and recommendation (2) COPD exacerbation: Code(s): J44.1 - Chronic obstructive pulmonary disease with (acute) exacerbation Status: Acute Assessment and Plan: Now on ventilator noted above. Continue nebulizer treatments and IV steroids. Also on IV antibiotics. (3) Septic shock: Code(s): A41.9 - Sepsis, unspecified organism; R65.21 - Severe sepsis with septic shock Status: Resolved Assessment and Plan: blood, urine and MRSA cultures are negative - sputum cultures growing Yeast and gram-positive cocci in pairs - continue Levophed maintain mean arterial pressures > 65 mmHg - continue antibiotics as above, - significantly positive fluid balance, off IV fluids (4) Depression: Qualifiers: Depression Type: other depression Qualified Code(s): F32.89 - Other specified depressive episodes Code(s): F32.9 - Major depressive disorder, single episode, unspecified Status: Chronic Assessment and Plan: continue Abilify, bupropion, paroxetine, clonazepam which are his home meds. (5) Anxiety: Code(s): F41.9 - Anxiety disorder, unspecified Status: Chronic Assessment and Plan: Continue medications as above. - Patient currently on Precedex infusion, still remains significantly anxious, continue low-dose Seroquel (6) Tobacco dependence: Code(s): F17.200 - Nicotine dependence, unspecified, uncomplicated Status: Chronic Assessment and Plan: will classification counselor patient on cessation of smoking once extubated, Cessation is imperative. (7) Acute renal failure: Code(s): N17.9 - Acute kidney failure, unspecified Status: Acute Assessment and Plan: RESOLVED: patient presented with acute kidney injury likely related to decreased oral intake, hypovolemia, septic shock. - creatinine is back to normal - continue to monitor renal function, electrolytes and urine output (8) DVT prophylaxis: Code(s): Z29.9 - Encounter for prophylactic measures, unspecified Status: Acute Assessment and Plan: DVT prophylaxis; Lovenox stress ulcer prophylaxis: famotidine (9) Ileus: Code(s): K56.7 - Ileus, unspecified Status: Acute Assessment and Plan: patient's abdominal was firm, obstructive series was done showed possible ileus but no small-bowel obstruction. - NG tube was okay to low intermittent suction - patient tolerating tube feeds, continue Reglan. Will add MiraLax - will continue to monitor Additional Plan discussed with at bedside and updated her with patient's condition and plan of care. I answered all questions Code status: Full code Critical care time spent: 32 minutes Due to a high probability of clinically significant, life threatening deterioration, the patient required my highest level of preparedness to intervene emergently and I personally spent this critical care time directly and personally managing the patient. This
[2019-03-25 12:32] LABS: Glucose Point of Care 149 (65-105)
--- NOTE | 2019-03-25 17:10 | PM.IMPN ---
Progress Note: A&P Assessment and Plan (1) Acute and chronic respiratory failure with hypercapnia: Code(s): J96.22 - Acute and chronic respiratory failure with hypercapnia Status: Acute Assessment and Plan: Currently sedated and intubated. Ventilator management per steel rule inspector. Having difficulty weaning sedation due to severe anxiety and severity of his lung disease. He remains a full code. Continue IV steroids, IV antibiotics and nebulizer treatments. Will monitor. Appreciate Pulmonolgy and ntensivist input. (2) COPD exacerbation: Code(s): J44.1 - Chronic obstructive pulmonary disease with (acute) exacerbation Status: Acute Assessment and Plan: Remains on mechanical ventilation as noted above. Continue nebulizer treatments, IV abx and IV steroids (3) Septic shock: Code(s): A41.9 - Sepsis, unspecified organism; R65.21 - Severe sepsis with septic shock Status: Resolved Assessment and Plan: Patient in off Levophed again. BP soft at times but could be related to sedation which is required due to his severe anxiety. Blood culture NGTD. UCx negative. MRSA nasal swab also negative. Sputum growing yeast of unclear significance. Continue IV ceftriaxone and azithromycin. WBC back down to 15K. CXR not showing any infiltrates. Monitor WBC for now. Appreciate steel rule inspector input. (4) Ileus: Code(s): K56.7 - Ileus, unspecified Status: Acute Assessment and Plan: ABd distention - KUB showing probably ileus. Dulcolax suppository given with good results. Still with considerable agitation with exam. Monitor tube feeding and exam. Consider CT abdomen/pelvis if persistent symptoms. (5) Anxiety: Code(s): F41.9 - Anxiety disorder, unspecified Status: Chronic Assessment and Plan: Patietn with severe anxiety. Home abilify, bupropion and paroxetine resumed. Takes Clonazepam at home prn but now scheduled. Seroquel added as well to try to control anxiety. (6) HTN (hypertension): Qualifiers: Hypertension type: unspecified Qualified Code(s): I10 - Essential (primary) hypertension Code(s): I10 - Essential (primary) hypertension Status: Chronic Assessment and Plan: BP reviewed on 03/25/19. BP low this morning to 87/58. Requiring Levophed intermittently. Continue to hold home amlodipine and valsartan for now. (7) Depression: Qualifiers: Depression Type: other depression Qualified Code(s): F32.89 - Other specified depressive episodes Code(s): F32.9 - Major depressive disorder, single episode, unspecified Status: Chronic Assessment and Plan: As above. (8) Tobacco dependence: Code(s): F17.200 - Nicotine dependence, unspecified, uncomplicated Status: Chronic Assessment and Plan: Counseled on tobacco cessation prior to intubation. Cessation imperative. Will reinforce once able. (9) DVT prophylaxis: Code(s): Z29.9 - Encounter for prophylactic measures, unspecified Status: Acute Assessment and Plan: Lovenox Subjective Date/time seen: 03/25/19 17:10 Interval history: 68yo male admitted with acute on chronic respiratory failure, COPD exacerbation, septic shock. Currently intubated and sedated so unable to provide hx. Agitated at times still. Was off Levophed last night but resumed this morning. he is back off Levophed today. Currently on Fentanyl 75mcg/hr and Versed 2mg/hr. TF resumed. Review of Systems Review of Systems: ROS unobtainable: unobtainable due to endotracheal tube Exam Narrative: Exam Narrative: Gen - intuabted and sedated HEENT - ETT secured. OG secured and TF running Chest - very distant BS. CV - tachycardic, regular; Tele showing sinus tach at times Abd - firm but less distended. He becomes agitated with abd exam. - Torrez secured draining clear yellow urine Ext - no
[2019-03-25 17:26] LABS: Glucose Point of Care 125 (65-105)
[2019-03-25 23:34] LABS: Glucose Point of Care 118 (65-105)
[2019-03-26] VITALS (30 sets, daily range): BP systolic 86–148; BP diastolic 42–93; PULSE 84–134; RESP 16–25; TEMP 36.9–38.9; O2SAT 91–100
[2019-03-26] MEDS: ALBUTEROL SULFATE NEB 2.5 MG/0.5 ML INH 5 MG INHALATION ×4 (01:22→20:20)
[2019-03-26] MEDS: IPRATROPIUM BR 0.02% INH SOLN 0.5 MG/2.5 ML VIAL INHALATION ×4 (01:22→20:20)
[2019-03-26 04:51] LABS: Alveolar/Arterial O2 Gradient 97.1 mmHg; Base Excess ABG 6.3 mEq/l (+/-2.0); Carboxyhemoglobin 0.3 % THb (0-2.0); Fractional Inspired Oxygen 40 %; HCO3 ABG 33.7 mEq/l (22.0-26.0); Methemoglobin ABG 0.5 %THb (0-1.5); Oxygen Content ABG 16.2 %vol (16.0-22.0); Oxygen Saturation ABG 97.9 % (95.0-100.0); Oxyhemoglobin 96.5 % THb (90.0-100.0); PO2 ABG 115.3 mmHg (80.0-100.0); PO2 FiO2 Ratio Arterial Blood 2.88 %; Reduced Hemoglobin 2.7 %THb (0-5.0); Total Hemoglobin 11.8 g/dL (12.0-18.0); pH ABG 7.344 (7.350-7.450)
[2019-03-26 04:54] LABS: PCO2 ABG 63.3 mmHg (35.0-45.0)
[2019-03-26 04:55] LABS: Device VENTILATOR; Modified Allen's Test Pass; Site Drawn LEFT BRACHIAL
[2019-03-26 04:56] LABS: Arterial Blood Gas Vent Mode CMV; Arterial Blood Gas Ventilator rate 16 /MIN
[2019-03-26 04:57] LABS: Arterial Blood Gas PEEP 5 cmH2O; Arterial Blood Gas Tidal Volume 350 ml
[2019-03-26 05:05] LABS: Hematocrit 33.7 % (42.0-52.0); Hemoglobin 10.8 g/dL (14.0-18.0); Mean Corpuscular Volume 96.8 fl (80-100); Mean Platelet Volume 10.4 fl (7.4-10.4); Platelet Count Result 155 k/mm3 (150-375); Red Blood Count 3.48 M/mm3 (4.6-6.20); Red Cell Distribution Width 14.9 % (11.5-14.5); White Blood Count 21.7 K/mm3 (4.5-10.0)
[2019-03-26] MEDS: methylPREDNISolone SOD SUCC 40 MG VIAL IV PUSH ×4 (05:21→23:47)
[2019-03-26] MEDS: CLONAZEPAM 0.5 MG TAB 1 MG PO ×3 (05:21→23:47)
[2019-03-26 05:23] LABS: Blood Urea Nitrogen 43 mg/dL (9-20); Calcium 8.7 mg/dL (8.4-10.2); Carbon Dioxide 36 mmol/L (22-30); Chloride 92 mmol/L (98-107); Estimated CRCL calculation 64 ml/min; Estimated Glomerular Filt Rate > 60; Glucose 111 mg/dL (75-110); Magnesium 2.2 mg/dL (1.6-2.3); Phosphorus 3.7 mg/dL (2.5-4.5); Potassium 4.5 mmol/L (3.4-5.0); Sodium 133 mmol/L (137-145)
[2019-03-26] MEDS: MIDAZOLAM HCL 50 MG in DEXTROSE 5% 90 ML 6 MG IV CONT (05:28)
[2019-03-26] MEDS: ENOXAPARIN 40 MG/0.4 ML SYRINGE SUB-Q (08:14)
[2019-03-26] MEDS: QUEtiapine FUMARATE 25 MG TABLET PO ×2 (08:15→21:26)
[2019-03-26] MEDS: FAMOTIDINE 20 MG TABLET FEED TUBE ×2 (08:15→21:26)
[2019-03-26] MEDS: PAROXETINE 20 MG TABLET 40 MG PO (08:15)
[2019-03-26] MEDS: ARIPIPRAZOLE 2 MG TABLET PO (08:15)
[2019-03-26] MEDS: buPROPion HCL XL (24 HR) 150 MG TABCR 300 MG PO (08:16)
[2019-03-26] MEDS: polyethylene glycoL 3350 17 GM POWD.PACK PO (08:19)
--- NOTE | 2019-03-26 08:45 | PM.IMPN ---
Progress Note: A&P Assessment and Plan (1) Acute and chronic respiratory failure with hypercapnia: Code(s): J96.22 - Acute and chronic respiratory failure with hypercapnia Status: Acute Assessment and Plan: Currently sedated and intubated. Ventilator management per teacher of family and consumer science. Having difficulty weaning sedation due to severe anxiety and severity of his lung disease. He remains a full code. Continue IV steroids, IV antibiotics and nebulizer treatments. Will monitor. Appreciate Pulmonolgy and Hydraulic Press Operator input. (2) COPD exacerbation: Code(s): J44.1 - Chronic obstructive pulmonary disease with (acute) exacerbation Status: Acute Assessment and Plan: Remains on mechanical ventilation as noted above. Continue nebulizer treatments, IV abx and IV steroids (3) Septic shock: Code(s): A41.9 - Sepsis, unspecified organism; R65.21 - Severe sepsis with septic shock Status: Resolved Assessment and Plan: Patient in off Levophed again. BP soft at times (93/63 this morning) but could be related to sedation which is required due to his severe anxiety. Blood culture NGTD. UCx negative. MRSA nasal swab also negative. Sputum growing yeast of unclear significance. Continue IV ceftriaxone and azithromycin. WBC back up to 21K. CXR not showing any infiltrates. No diarrhea to suggest CDiff. Monitor WBC for now. Appreciate teacher of family and consumer science input. (4) Ileus: Code(s): K56.7 - Ileus, unspecified Status: Acute Assessment and Plan: ABd distention pn 03/22/19 and KUB showing probably ileus. Dulcolax suppository given with good results. Still with considerable agitation with exam. Not tolerting tube feeding. Consider CT abdomen/pelvis. (5) Anxiety: Code(s): F41.9 - Anxiety disorder, unspecified Status: Chronic Assessment and Plan: Patietn with severe anxiety. Home abilify, bupropion and paroxetine resumed. Takes Clonazepam at home prn but now scheduled. Seroquel added as well to try to control anxiety. (6) HTN (hypertension): Qualifiers: Hypertension type: unspecified Qualified Code(s): I10 - Essential (primary) hypertension Code(s): I10 - Essential (primary) hypertension Status: Chronic Assessment and Plan: BP reviewed on 03/26/19. BP stable. Off Levophed now. Continue to hold home amlodipine and valsartan for now. (7) Depression: Qualifiers: Depression Type: other depression Qualified Code(s): F32.89 - Other specified depressive episodes Code(s): F32.9 - Major depressive disorder, single episode, unspecified Status: Chronic Assessment and Plan: As above. (8) Tobacco dependence: Code(s): F17.200 - Nicotine dependence, unspecified, uncomplicated Status: Chronic Assessment and Plan: Counseled on tobacco cessation prior to intubation. Cessation imperative. Will reinforce once able. (9) DVT prophylaxis: Code(s): Z29.9 - Encounter for prophylactic measures, unspecified Status: Acute Assessment and Plan: Lovenox Subjective Date/time seen: 03/26/19 08:45 Interval history: 68yo male admitted with acute on chronic respiratory failure, COPD exacerbation, septic shock. Patient remains intubated and sedated so unable to provide hx. Becomes agitated with exam. Patient remains off Levophed. Tube feedings held this morning because high residual. Currently on Fentanyl 100mcg/hr and Versed 3mg/hr. Review of Systems Review of Systems: ROS unobtainable: unobtainable due to endotracheal tube Exam Narrative: Exam Narrative: Gen - intuabted and sedated HEENT - ETT secured. OG secured. OG is opened to gravity drainage Chest - distant with coarse breath sounds CV - RRR S1/S2; Tele showing occas sinus tachycardia Abd - abd firm and tense. Patient becomes agitated during abd exam with whole body tense, pulling at r
[2019-03-26 11:56] LABS: Glucose Point of Care 116 (65-105)
--- NOTE | 2019-03-26 12:04 | WPDINTPN ---
Progress Note: A&P Assessment and Plan (1) Acute and chronic respiratory failure with hypercapnia: Code(s): J96.22 - Acute and chronic respiratory failure with hypercapnia Status: Acute Assessment and Plan: patient presented with acute on chronic respiratory with increased work of breathing and was intubated on 03/19/2019. - Patient on CMV mode of ventilation, 40% FiO2 - history of COPD /emphysema. Chest x-ray does not show any pneumonia or pulmonary vascular congestion. - Continue bronchodilators, ceftriaxone and azithromycin, Solu-Medrol - patient moving more air in the lungs today - patient did not tolerate Precedex infusion, had to be placed back on fentanyl and Versed infusion for more sedation. - Patient currently has ileus versus small-bowel obstruction, may not be able to wean him at this time - appreciate Pulmonary evaluation and recommendation (2) COPD exacerbation: Code(s): J44.1 - Chronic obstructive pulmonary disease with (acute) exacerbation Status: Acute Assessment and Plan: Now on ventilator noted above. Continue nebulizer treatments and IV steroids. Also on IV antibiotics. (3) Septic shock: Code(s): A41.9 - Sepsis, unspecified organism; R65.21 - Severe sepsis with septic shock Status: Resolved Assessment and Plan: blood, urine and MRSA cultures are negative. Hypotension could be related to sedation meds, as he was off Levophed had to be restarted again once fentanyl and Versed were restarted. - sputum cultures growing Yeast and gram-positive cocci in pairs - continue Levophed maintain mean arterial pressures > 65 mmHg - continue antibiotics as above, - significantly positive fluid balance, off IV fluids (4) Depression: Qualifiers: Depression Type: other depression Qualified Code(s): F32.89 - Other specified depressive episodes Code(s): F32.9 - Major depressive disorder, single episode, unspecified Status: Chronic Assessment and Plan: continue Abilify, bupropion, paroxetine, clonazepam which are his home meds. (5) Anxiety: Code(s): F41.9 - Anxiety disorder, unspecified Status: Chronic Assessment and Plan: Continue medications as above. - Patient currently on Precedex infusion, still remains significantly anxious, continue low-dose Seroquel (6) Tobacco dependence: Code(s): F17.200 - Nicotine dependence, unspecified, uncomplicated Status: Chronic Assessment and Plan: will director counseling bureau patient on cessation of smoking once extubated, Cessation is imperative. (7) Acute renal failure: Code(s): N17.9 - Acute kidney failure, unspecified Status: Acute Assessment and Plan: RESOLVED: patient presented with acute kidney injury likely related to decreased oral intake, hypovolemia, septic shock. - creatinine is back to normal - continue to monitor renal function, electrolytes and urine output (8) DVT prophylaxis: Code(s): Z29.9 - Encounter for prophylactic measures, unspecified Status: Acute Assessment and Plan: DVT prophylaxis; Lovenox stress ulcer prophylaxis: famotidine (9) Ileus: Code(s): K56.7 - Ileus, unspecified Status: Acute Assessment and Plan: patient's abdominal is firm, tympanic, distended. Obstructive series showed possible ileus versus small-bowel obstruction. - NG tube was okay to low intermittent suction - patient not tolerating tube feeds with high residuals. - GI has been consulted Additional Plan discussed with at bedside and updated her with patient's condition and plan of care. I discussed with her regarding tracheostomy and PEG tube placement if patient cannot be weaned from the ventilator. According the patient never wanted to be on machines, she wants to make him a DNR. Code status: DNR Critical care time spent: 34 minutes Due to
--- NOTE | 2019-03-26 12:07 | PCDIET ---
ICU Rounding Note: Tube feedings held for increased residuals up to 475mL overnight. KUB noted. MD ordered NG to suction which is appropriate. Last recorded weight is 63.5kg which is stable. Bowel Motility: Last documented bowel movement 03/23/19. Labs Reviewed: Glu (111), BUN (43), Na (133), Hgb (10.3), Hct (33.7) Meds Noted: Albuterol, Rocephin, Pepcid, Fentanyl, Novolog, Versed, Solu Medrol, Levophed, Miralax Additional Notes: Buttocks macerated. No other skin issues reported. Following daily in ICU rounds. Assessing/reassessing every Tuesday/Tuesday.
--- NOTE | 2019-03-26 13:04 | WPDGICN ---
Assessment and Plan Assessment and plan (1) Ileus: Code(s): K56.7 - Ileus, unspecified Status: Acute Assessment and Plan: will get CT scan a/p to assess if SBO (noted more residuals, RN says that no recent bowel movement and more distended abdomen). May need surgical consult based on findings. (2) Leukocytosis: Qualifiers: Leukocytosis type: unspecified Qualified Code(s): D72.829 - Elevated white blood cell count, unspecified Code(s): D72.829 - Elevated white blood cell count, unspecified Status: Acute Assessment and Plan: treated with iv abx, also on steroids. (3) Septic shock: Code(s): A41.9 - Sepsis, unspecified organism; R65.21 - Severe sepsis with septic shock Status: Resolved (4) Acute and chronic respiratory failure with hypercapnia: Code(s): J96.22 - Acute and chronic respiratory failure with hypercapnia Status: Acute Assessment and Plan: difficult to extubate, did not tolerate trials. 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 Extubation attempts unsuccesful because he did not tolerate breathing trial and has been very anxious, even tried precedex. He has NGT with feeding but RN noted more gastric residuals ~ 500ml, also more abdominal distension. KUB showed mild dilated SB, either adynamic ileus vs SBO. Lactic acid normal, WBC 20k but on iv steroids, high CO2 but chronic hypercapnea. History is obtained from records and his nurse. Review of Systems Review of Systems: ROS unobtainable: unobtainable due to endotracheal tube and unobtainable due to mental status [facility] Past Medical History Medical History (Updated 03/26/19 @ 13:40 by Varun An MD) Arthritis Bronchitis Chronic hypoxemic respiratory failure Colon polyps COPD (chronic obstructive pulmonary disease) Depression Hand fracture History of angina HTN (hypertension) Osteomyelitis rt shoulder Pneumonia Sleep apnea Tobacco dependence Surgical History Surgical History Hx of tonsillectomy Hx of vasectomy Family History Family History Mother Family history of lung cancer Patient's mother is Acute myocardial infarction Father Patient's father is Acute myocardial infarction Social History Social History Smoking packs per day: 1 Smoking cigarettes per day: 20.0 Years smoked: 50 Smoking pack-years: 50.00 Smoking status: Current every day smoker Tobacco type: cigarettes Second hand tobacco smoke exposure: No Additional smoking assessment comments: Now smoking 4 cigs per day per family Alcohol intake: never Drinks per week: 1 Substance use: former Substance use type: marijuana Gender identity (if verbalized by the patient): Male Spiritual care concerns: No Agree to blood products: Yes Meds Home Medications and Allergies Home Medications Medication Instructions Recorded Confirmed Type amlodipine 5 mg-valsartan 160 mg 1 tablet PO DAILY #90 tablet 12/25/18 03/19/19 Rx tablet albuterol sulfate 90 mcg/actuation 2 puff INHALA
--- NOTE | 2019-03-26 13:46 | PM.PNPUL ---
Progress Note: A&P Assessment and Plan (1) Acute respiratory failure with hypoxia and hypercapnia: Code(s): J96.01 - Acute respiratory failure with hypoxia; J96.02 - Acute respiratory failure with hypercapnia Status: Acute Assessment and Plan: He has chronic hypercapnic hypoxmeic resp failure, was admitted in Dec and was on BiPAP , still smoking; he has been on the ventilator for 5 days, and has excessive increase in heart rate and anxiety with weaning trials. He has so little reserve that he may not tolerate trials. This may be a situation in which we have to just pull out the tube. The mild increase in respiratory demand with weaning might be more than he can tolerate. His hands are slightly swollen. His prognosis is guarded. (2) Tobacco abuse: Code(s): Z72.0 - Tobacco use Status: Acute Assessment and Plan: Was smoking up until the last admission, was not able to get this information from his at this point. Tobacco cessation is strongly recommended. Subjective Date/time seen: 03/26/19 13:46 THis 68 yo man is seen in follow up for acute on chronic respiratory failure, severe COPD, on mechanical ventilation, difficulty weaning. Review of Systems Constitutional: Constitutional: Reports no additional constitutional complaints Eyes: Eyes: Reports no additional eye complaints Exam Const: General: no acute distress Other: Appears anxious. Eyes: Other: Mild amount of white mattering in the corners of the eyes. Neck: Neck: no JVD Resp: Auscultation: diminished lung sounds (hyperinflated chest; hyperresonate to percussion) Cardio: Rate: tachycardic Rhythm: regular rhythm GI: Auscultation: abnormal bowel sounds Other: nondistended abdomen, soft, no masses Urinary Catheter: Urinary Catheter: patent and draining Extrem: Right upper extremity: edema Left upper extremity: edema Other: mild edema of both hands, no swellign of arms. Wrist restraints ion place. Psych: Affect: Anxious affect present Objective Data Vital Signs Vital Signs: Vital Signs - 24 hr 03/25/19 14:00 03/25/19 14:25 03/25/19 14:35 Temperature Pulse Rate 112 H 103 H 103 H Respiratory Rate 19 16 16 Blood Pressure 118/70 Pulse Oximetry 94 95 03/25/19 16:00 03/25/19 17:35 03/25/19 17:41 Temperature 36.6 C Pulse Rate 132 H 101 H 109 H Respiratory Rate 18 16 Blood Pressure 158/83 H 106/64 Pulse Oximetry 94 95 94 03/25/19 20:00 03/25/19 20:02 03/25/19 20:03 Temperature 37.0 C Pulse Rate 100 106 H 105 H Respiratory Rate 16 16 Blood Pressure 113/61 Pulse Oximetry 95 95 03/25/19 20:10 03/25/19 22:00 03/25/19 22:15 Temperature Pulse Rate 111 H 107 H 108 H Respiratory Rate 16 16 Blood Pressure 102/54 L Pulse Oximetry 94 94 03/26/19 00:00 03/26/19 01:23 03/26/19 01:24 Temperature 37.1 C Pulse Rate 105 H 90 89 Respiratory Rate 16 16 Blood Pressure 142/81 H Pulse Oximetry 95 96 03/26/19 01:31 03/26/19 02:00 03/26/19 04:00 Temperature 37.2 C Pulse Rate 90 102 H 89 Respiratory Rate 16 18 16 Blood Pressure 148/81 H 113/69 Pulse Oximetry 94 95 03/26/19 05:13 03/26/19 06:00 03/26/19 08:00 Temperature 36.9 C Pulse Rate 118 H 93 119 H Respiratory Rate 16 23 H Blood Pressure 93/63 L 128/82 Pulse Oximetry 97 96 97 03/26/19 08:26 03/26/19 08:31 03/26/19 09:10 Temperature Pulse Rate 127 H 122 H 134 H Respiratory Rate 20 22 H Blood Pressure Pulse Oximetry 95 03/26/19 10:00 03/26/19 10:41 03/26/19 11:44 Temperature 38.9 C H Pulse Rate 111 H 117 H 122 H Respiratory Rate 24 H 20 Blood Pressure 98/56 L 138/93 H Pulse Oximetry 98 97 98 03/26/19 11:47 03/26/19 12:00 03/26/19 12:55 Temperature 38.8 C H Pulse Rate 118 H 109 H Respiratory Rate 25 H 20 Blood Pressure 92/64 L Pulse Oximet
[2019-03-26] MEDS: MIDAZOLAM HCL 2 MG/2 ML VIAL 4 MG (15:55)
[2019-03-26 17:54] LABS: Glucose Point of Care 115 (65-105)
[2019-03-26] MEDS: MIDAZOLAM HCL 50 MG in DEXTROSE 5% 90 ML 12 MG IV CONT (18:09)
[2019-03-26] MEDS: NOREPINEPHRINE 8 MG/D5W 250 ML 8 MG/250 ML BAG 5.6 MG IV CONT (22:50)
[2019-03-26 23:44] LABS: Glucose Point of Care 129 (65-105)
[2019-03-27] VITALS (16 sets, daily range): BP systolic 71–116; BP diastolic 50–77; PULSE 66–149; RESP 14–20; TEMP 36.4–36.5; O2SAT 60–95
[2019-03-27] MEDS: IPRATROPIUM BR 0.02% INH SOLN 0.5 MG/2.5 ML VIAL INHALATION ×2 (01:40→08:29)
[2019-03-27] MEDS: ALBUTEROL SULFATE NEB 2.5 MG/0.5 ML INH 5 MG INHALATION ×2 (01:40→08:29)
[2019-03-27] MEDS: MIDAZOLAM HCL 50 MG in DEXTROSE 5% 90 ML 12 MG IV CONT ×2 (02:11→09:57)
[2019-03-27 04:38] LABS: Hematocrit 30.7 % (42.0-52.0); Hemoglobin 10.1 g/dL (14.0-18.0); Mean Corpuscular HGB Conc 32.9 g/dl (32-36); Mean Corpuscular Hemoglobin 31.3 pg (26-34); Mean Platelet Volume 9.4 fl (7.4-10.4); Platelet Count Result 282 k/mm3 (150-375); Red Blood Count 3.23 M/mm3 (4.6-6.20); Red Cell Distribution Width 14.6 % (11.5-14.5); White Blood Count 16.6 K/mm3 (4.5-10.0)
[2019-03-27 04:54] LABS: Alveolar/Arterial O2 Gradient 71.8 mmHg; Base Excess ABG 10.4 mEq/l (+/-2.0); Carboxyhemoglobin 0.2 % THb (0-2.0); Fractional Inspired Oxygen 40 %; Methemoglobin ABG 0.3 %THb (0-1.5); Oxygen Content ABG 15.9 %vol (16.0-22.0); Oxygen Saturation ABG 99.3 % (95.0-100.0); Oxyhemoglobin 97.7 % THb (90.0-100.0); PCO2 ABG 41.4 mmHg (35.0-45.0); PO2 ABG 165.8 mmHg (80.0-100.0); PO2 FiO2 Ratio Arterial Blood 4.14 %; Reduced Hemoglobin 1.8 %THb (0-5.0); Total Hemoglobin 11.3 g/dL (12.0-18.0)
[2019-03-27 04:56] LABS: Device VENTILATOR; Modified Allen's Test Pass; Site Drawn LEFT RADIAL; pH ABG 7.532 (7.350-7.450)
[2019-03-27 04:57] LABS: Arterial Blood Gas PEEP 5 cmH2O; Arterial Blood Gas Tidal Volume 350 ml; Arterial Blood Gas Vent Mode CMV; Arterial Blood Gas Ventilator rate 20 /MIN
[2019-03-27 04:59] LABS: Blood Urea Nitrogen 35 mg/dL (9-20); Calcium 8.5 mg/dL (8.4-10.2); Carbon Dioxide 36 mmol/L (22-30); Chloride 92 mmol/L (98-107); Estimated CRCL calculation 64 ml/min; Estimated Glomerular Filt Rate > 60; Glucose 129 mg/dL (75-110); Magnesium 2.3 mg/dL (1.6-2.3); Phosphorus 2.7 mg/dL (2.5-4.5); Potassium 3.8 mmol/L (3.4-5.0); Sodium 134 mmol/L (137-145)
[2019-03-27] MEDS: CLONAZEPAM 0.5 MG TAB 1 MG PO (05:56)
[2019-03-27] MEDS: methylPREDNISolone SOD SUCC 40 MG VIAL IV PUSH (05:57)
--- NOTE | 2019-03-27 09:30 | PM.IMPN ---
Progress Note: A&P Assessment and Plan (1) Acute and chronic respiratory failure with hypercapnia: Code(s): J96.22 - Acute and chronic respiratory failure with hypercapnia Status: Acute Assessment and Plan: Remains sedated and intubated. Ventilator management per plant utilities engineer. Appreciate help from pulmonology and plant utilities engineer. Family has now made him a DNR. Continue IV steroids, IV antibiotics and nebulizer treatments. Received call from in plant utilities engineer this morning. Family has decided to proceed with comfort measures. Terminally extubated. IV morphine and Ativan. (2) COPD exacerbation: Code(s): J44.1 - Chronic obstructive pulmonary disease with (acute) exacerbation Status: Acute Assessment and Plan: Has been on IV antibiotics, nebulizer treatments and steroids. Now moving to comfort measures as noted above. (3) Septic shock: Code(s): A41.9 - Sepsis, unspecified organism; R65.21 - Severe sepsis with septic shock Status: Resolved Assessment and Plan: Blood pressure reviewed on 03/27/2019 remains low normal. Has been on IV ceftriaxone and azithromycin. MRSA nasal swab negative. Urine culture negative. Blood cultures negative today. Now plan for comfort measures as noted. (4) Ileus: Code(s): K56.7 - Ileus, unspecified Status: Acute Assessment and Plan: As seen on imaging. Abdominal x-ray from 03/26/2019 with persistently mildly dilated loop of small bowel consistent with adynamic ileus versus small-bowel obstruction. With small volume of ascites, small right pleural effusion and severe emphysema. Was not tolerating tube feeding. Now moving to comfort measures. (5) Anxiety: Code(s): F41.9 - Anxiety disorder, unspecified Status: Chronic Assessment and Plan: Known severe anxiety. Has been on home Abilify, bupropion and paroxetine. Also has been on clonazepam scheduled as well as quetiapine. All medications now to be stopped with comfort measures. (6) HTN (hypertension): Qualifiers: Hypertension type: unspecified Qualified Code(s): I10 - Essential (primary) hypertension Code(s): I10 - Essential (primary) hypertension Status: Chronic Assessment and Plan: Blood pressure reviewed on 03/26/2019. Home amlodipine and valsartan have been on hold. Blood pressure as noted above. (7) Depression: Qualifiers: Depression Type: other depression Qualified Code(s): F32.89 - Other specified depressive episodes Code(s): F32.9 - Major depressive disorder, single episode, unspecified Status: Chronic Assessment and Plan: Medications have been given as noted above but now discontinuing all with comfort measures. (8) Tobacco dependence: Code(s): F17.200 - Nicotine dependence, unspecified, uncomplicated Status: Chronic Assessment and Plan: Counseled on tobacco cessation prior to intubation. (9) DVT prophylaxis: Code(s): Z29.9 - Encounter for prophylactic measures, unspecified Status: Acute Assessment and Plan: Lovenox Time Spent With Patient Time with patient: 15 - 25 minutes Subjective Date/time seen: 03/27/19 09:30 Interval history: Date of Service: 03/27/2019. Admitted with acute on chronic respiratory failure, COPD exacerbation, septic shock. Remains intubated. Review of Systems Review of Systems: ROS unobtainable: unobtainable due to endotracheal tube Exam Const: General: no acute distress HENMT: Other: ET/OG tubes in place Neck: Neck: supple Resp: Auscultation: no wheezes and diminished lung sounds Other: very poor aeration Cardio: Rate: regular rate Rhythm: regular rhythm GI: Inspection: non-distended Auscultation: normal bowel sounds Urinary Catheter: Urinary Catheter: patent and draining and urine clear Skin: General skin exam: normal color Neuro: Other: sedated Extrem: General: no
[2019-03-27] MEDS: ENOXAPARIN 40 MG/0.4 ML SYRINGE SUB-Q (09:45)
--- NOTE | 2019-03-27 09:57 | WPDINTPN ---
Progress Note: A&P Assessment and Plan (1) Acute and chronic respiratory failure with hypercapnia: Code(s): J96.22 - Acute and chronic respiratory failure with hypercapnia Status: Acute Assessment and Plan: patient presented with acute on chronic respiratory with increased work of breathing and was intubated on 03/19/2019. - Patient on CMV mode of ventilation, 40% FiO2 - history of COPD /emphysema. Chest x-ray does not show any pneumonia or pulmonary vascular congestion. - Continue bronchodilators, ceftriaxone and azithromycin, Solu-Medrol - patient moving more air in the lungs today - patient remains on increasing doses of fentanyl and Versed infusion as he gets very agitated and anxious on oral care, suctioning, turning the patient. - Patient currently has ileus versus small-bowel obstruction, may not be able to wean him at this time - appreciate Pulmonary evaluation and recommendation - discussed with patient's and his sons and they have decided to make him comfort measures with withdrawal of care. They stated that it was not his wishes to be intubated or placed on machines, they also stated that would not want to have a tracheostomy or PEG tube placement (2) COPD exacerbation: Code(s): J44.1 - Chronic obstructive pulmonary disease with (acute) exacerbation Status: Acute Assessment and Plan: Now on ventilator noted above. Continue nebulizer treatments and IV steroids. Also on IV antibiotics. (3) Septic shock: Code(s): A41.9 - Sepsis, unspecified organism; R65.21 - Severe sepsis with septic shock Status: Resolved Assessment and Plan: blood, urine and MRSA cultures are negative. Hypotension could be related to sedation meds, as he was off Levophed had to be restarted again once fentanyl and Versed were restarted. - sputum cultures growing Yeast and gram-positive cocci in pairs - continue Levophed maintain mean arterial pressures > 65 mmHg - continue antibiotics as above, - significantly positive fluid balance, off IV fluids (4) Depression: Qualifiers: Depression Type: other depression Qualified Code(s): F32.89 - Other specified depressive episodes Code(s): F32.9 - Major depressive disorder, single episode, unspecified Status: Chronic Assessment and Plan: continue Abilify, bupropion, paroxetine, clonazepam which are his home meds. (5) Anxiety: Code(s): F41.9 - Anxiety disorder, unspecified Status: Chronic Assessment and Plan: Continue medications as above. - Patient currently on Precedex infusion, still remains significantly anxious, continue low-dose Seroquel (6) Tobacco dependence: Code(s): F17.200 - Nicotine dependence, unspecified, uncomplicated Status: Chronic Assessment and Plan: will financial health counselor patient on cessation of smoking once extubated, Cessation is imperative. (7) Acute renal failure: Qualifiers: Acute renal failure type: unspecified Qualified Code(s): N17.9 - Acute kidney failure, unspecified Code(s): N17.9 - Acute kidney failure, unspecified Status: Acute Assessment and Plan: RESOLVED: patient presented with acute kidney injury likely related to decreased oral intake, hypovolemia, septic shock. - creatinine is back to normal - continue to monitor renal function, electrolytes and urine output (8) DVT prophylaxis: Code(s): Z29.9 - Encounter for prophylactic measures, unspecified Status: Acute Assessment and Plan: DVT prophylaxis; Lovenox stress ulcer prophylaxis: famotidine (9) Ileus: Code(s): K56.7 - Ileus, unspecified Status: Acute Assessment and Plan: patient's abdominal is firm, tympanic, distended. Obstructive series showed possible ileus versus small-bowel obstruction. - NG tube was okay to low intermittent suction - patient not tolerating tube feeds
--- NOTE | 2019-03-27 11:42 | PCDIET ---
Nutrition Follow-Up Complete: Nutrition Diagnosis: Inadequate oral intake related to oral intubation as evidenced by NPO status. Nutrition Goal: Patient to meet estimated nutritional needs. Goal not met. Tube feedings have been held due to ileus vs. small bowel obstruction. NG output 800mL yesterday. MD adding Reglan and suppository and ordered to start trickle feedings: Vital 1.2 at 10mL/hr. Last recorded weight is 64 kg which is stable. Bowel Motility: +BM on 03/26/19, small Labs Reviewed: Glu (129), BUN (35), Na (134) Meds Noted: Albuterol, Rocephin, Pepcid, Fentanyl, Novolog, Solu Medrol, Versed, Levophed, Miralax Additional Notes: Buttocks macerated. No other issues reported. Agree with plan to start trickle feedings. May consider supplemental parenteral feedings if unable to advance enteral feedings over the next few days. Will continue to monitor with same goal. Nutrition Monitoring and Evaluation: Follow up every Tuesday/Tuesday. Follow daily in ICU rounds.
[2019-03-27] MEDS: LORAZEPAM INJ 2 MG/ML VIAL IV PUSH ×3 (14:58→19:25)
[2019-03-27] MEDS: MORPHINE SULFATE 4 MG/ML INJ 5 MG IV PUSH (14:58)
--- NOTE | 2019-03-27 22:58 | PC.NURSE ---
pt transfered to 248 monitor removed
--- NOTE | 2019-03-27 23:20 | PC.NURSE ---
Received pt from ICU Morphine drip continues, family at bedside. Pt at this time unresponsive. See assessment.
[2019-03-28] MEDS: LORAZEPAM INJ 2 MG/ML VIAL IV PUSH ×2 (08:17→20:45)
--- NOTE | 2019-03-28 10:33 | PC.NURSE ---
morphine drip increased to 10mg per hour per order. Change on on apr yet It currently working on problem with mar, Dose change verified by Tahira Beck RN.
--- NOTE | 2019-03-28 12:16 | PM.IMPN ---
Progress Note: A&P Assessment and Plan (1) Acute and chronic respiratory failure with hypercapnia: Code(s): J96.22 - Acute and chronic respiratory failure with hypercapnia Status: Acute Assessment and Plan: Extubated on 03/27/2019 with moved to comfort measures. Will continue IV morphine drip with dose adjusted earlier today. IV morphine for breakthrough added. Will add scopolamine patch. Add atropine drops. IV Ativan remains as needed. Will continue to adjust treatment for comfort. Advised this afternoon family has requested hospice consult with [facility]. Continue present treatment for now. (2) COPD exacerbation: Code(s): J44.1 - Chronic obstructive pulmonary disease with (acute) exacerbation Status: Acute Assessment and Plan: Now on comfort measures as noted above. (3) Septic shock: Code(s): A41.9 - Sepsis, unspecified organism; R65.21 - Severe sepsis with septic shock Status: Resolved Assessment and Plan: MRSA nasal swab negative. Urine culture negative. Blood cultures negative to date. Now on comfort measures as noted above. (4) Ileus: Code(s): K56.7 - Ileus, unspecified Status: Acute Assessment and Plan: As seen on imaging. Now on comfort measures as noted above. (5) Anxiety: Code(s): F41.9 - Anxiety disorder, unspecified Status: Chronic Assessment and Plan: Known severe anxiety. Medications stopped with moved comfort measures. (6) HTN (hypertension): Qualifiers: Hypertension type: unspecified Qualified Code(s): I10 - Essential (primary) hypertension Code(s): I10 - Essential (primary) hypertension Status: Chronic Assessment and Plan: Home medications have been on hold prior to moved comfort measures. Now on comfort measures as noted. (7) Depression: Qualifiers: Depression Type: other depression Qualified Code(s): F32.89 - Other specified depressive episodes Code(s): F32.9 - Major depressive disorder, single episode, unspecified Status: Chronic Assessment and Plan: Now on comfort measures as noted above. (8) Tobacco dependence: Code(s): F17.200 - Nicotine dependence, unspecified, uncomplicated Status: Chronic Assessment and Plan: Counseled on tobacco cessation prior to intubation. (9) DVT prophylaxis: Code(s): Z29.9 - Encounter for prophylactic measures, unspecified Status: Acute Assessment and Plan: None with comfort measures. Time Spent With Patient Time with patient: 15 - 25 minutes Subjective Date/time seen: 03/28/19 12:16 Interval history: Date of Service: 03/28/2019. Admitted with acute on chronic respiratory failure, COPD exacerbation, septic shock. Was unable to come off ventilation with family requesting removal of support. As result, extubated on 03/27/2019. Now on comfort measures. present. Patient unresponsive. Review of Systems Review of Systems: ROS unobtainable: unobtainable due to mental condition Exam Narrative: Exam Narrative: Unresponsive. Const: General: no acute distress HENMT: Other: Unable to assess Neck: Neck: supple Lymphatic: lymphadenopathy not noted Resp: Auscultation: rhonchi (Throughout) and diminished lung sounds Cardio: Rate: regular rate Rhythm: regular rhythm GI: Inspection: non-distended GI Palp: Yes Soft to palpation Auscultation: normal bowel sounds Urinary Catheter: Urinary Catheter: patent and draining and urine clear Neuro: Other: Unresponsive Extrem: General: no edema Psych: Other: Unresponsive Objective Data Vital Signs Vital Signs: Vital Signs - 24 hr 03/27/19 18:28 03/27/19 20:00 Pulse Rate 101 H 149 H Respiratory Rate 14 17 Blood Pressure 89/58 L 71/62 L Pulse Oximetry 75 L 60 L Intake/Output Intake/Output: Intake & Output 03/25/19 03/26/19 03/27/19 03/28/19 23:59 23:59 23:
[2019-03-28] MEDS: SCOPOLAMINE 1.5 MG PATCH TRANSDERM (13:09)
[2019-03-28] MEDS: ATROPINE SULFATE 1% OPHTH SOLN 5 ML BOTTLE 1 DROP SUBLINGUAL ×2 (13:09→18:45)
--- NOTE | 2019-03-28 15:45 | PCCCNOTE ---
On 03/28/19, the student, [Jeri Cervantes ], provided care and [facility]. I have reviewed the student's documentation and agree with the findings.
[2019-03-28] MEDS: MORPHINE SULFATE 2 MG/ML INJ IV PUSH (20:54)
--- NOTE | 2019-03-29 03:23 | PC.NURSE ---
Pt family told me they do not want the pt turned or any vitals taken due to it causing the patient to be agitated. I educated the family on the needs of repositioning the patient every couple of hours to help prevent break down but they stated that they do not want him to be disturbed that they will help move him as needed. I have offered to reposition him every time I am in the room checking on the patient and they refuse every time.
[2019-03-29] MEDS: LORAZEPAM INJ 2 MG/ML VIAL IV PUSH ×2 (11:01→11:48)
[2019-03-29] MEDS: ATROPINE SULFATE 1% OPHTH SOLN 5 ML BOTTLE 1 DROP SUBLINGUAL (11:03)
[2019-03-29] MEDS: MORPHINE SULFATE 2 MG/ML INJ IV PUSH (11:10)
--- NOTE | 2019-03-29 11:50 | PM.IMPN ---
Progress Note: A&P Assessment and Plan (1) Acute and chronic respiratory failure with hypercapnia: Code(s): J96.22 - Acute and chronic respiratory failure with hypercapnia Status: Acute Assessment and Plan: Extubated on 03/27/2019 with moved to comfort measures. Will continue IV morphine drip and continue to adjust as needed for comfort. Continue IV morphine for breakthrough and IV Ativan as needed. Increase scopolamine and Atropine patches. Family has met with [facility] and with plan to discharge from acute care and readmit to inpatient hospice. (2) COPD exacerbation: Code(s): J44.1 - Chronic obstructive pulmonary disease with (acute) exacerbation Status: Acute Assessment and Plan: Now on comfort measures with plan for hospice as noted. (3) Septic shock: Code(s): A41.9 - Sepsis, unspecified organism; R65.21 - Severe sepsis with septic shock Status: Resolved Assessment and Plan: MRSA nasal swab negative. Urine culture negative. Blood cultures negative to date. Now on comfort measures as noted above with plan for hospice. (4) Ileus: Code(s): K56.7 - Ileus, unspecified Status: Acute Assessment and Plan: As seen on imaging. Now on comfort measures as noted above with plan for hospice. (5) Anxiety: Code(s): F41.9 - Anxiety disorder, unspecified Status: Chronic Assessment and Plan: Known severe anxiety. Medications stopped with move to comfort measures. (6) HTN (hypertension): Qualifiers: Hypertension type: unspecified Qualified Code(s): I10 - Essential (primary) hypertension Code(s): I10 - Essential (primary) hypertension Status: Chronic Assessment and Plan: Home medications have been on hold prior to moved comfort measures. Now on comfort measures as noted with plan for hospice as noted above. (7) Depression: Qualifiers: Depression Type: other depression Qualified Code(s): F32.89 - Other specified depressive episodes Code(s): F32.9 - Major depressive disorder, single episode, unspecified Status: Chronic Assessment and Plan: Now on comfort measures as noted above with plan for hospice as noted above. (8) Tobacco dependence: Code(s): F17.200 - Nicotine dependence, unspecified, uncomplicated Status: Chronic Assessment and Plan: Counseled on tobacco cessation prior to intubation. (9) DVT prophylaxis: Code(s): Z29.9 - Encounter for prophylactic measures, unspecified Status: Acute Assessment and Plan: None with comfort measures. Time Spent With Patient Time with patient: 15 - 25 minutes Subjective Date/time seen: 03/29/19 11:50 Interval history: Date of Service: 03/29/2019. Admitted with acute on chronic respiratory failure, COPD exacerbation, septic shock. Was unable to come off ventilation with family requesting removal of support. As result, extubated on 03/27/2019. Remains on comfort measures. Patient unresponsive. and son present. Review of Systems Review of Systems: ROS unobtainable: unobtainable due to mental condition Exam Narrative: Exam Narrative: Unresponsive. HENMT: Other: Unable to assess Neck: Neck: supple Lymphatic: lymphadenopathy not noted Resp: Auscultation: rhonchi (Throughout), no wheezes and diminished lung sounds Other: very poor aeration Cardio: Rate: regular rate Rhythm: regular rhythm GI: Inspection: non-distended Auscultation: normal bowel sounds Urinary Catheter: Urinary Catheter: patent and draining and urine clear Skin: General skin exam: normal color Neuro: Other: Unresponsive Extrem: General: no edema Psych: Other: Unresponsive Objective Data Intake/Output Intake/Output: Intake & Output 03/26/19 03/27/19 03/28/19 03/29/19 23:59 23:59 23:59 23:59 Intake Total 1129 550 382.5 100 Output Total 1875 700 50 0 Balance -746
--- NOTE | 2019-03-29 11:51 | PM.DS ---
DS: Diagnosis Admitting Diagnosis Admitting Diagnosis: Acute and chronic respiratory failure with hypercapnia Discharge Diagnosis (1) Acute and chronic respiratory failure with hypercapnia: Code(s): J96.22 - Acute and chronic respiratory failure with hypercapnia Status: Acute (2) COPD exacerbation: Code(s): J44.1 - Chronic obstructive pulmonary disease with (acute) exacerbation Status: Acute (3) Septic shock: Code(s): A41.9 - Sepsis, unspecified organism; R65.21 - Severe sepsis with septic shock Status: Resolved (4) Ileus: Code(s): K56.7 - Ileus, unspecified Status: Acute (5) Anxiety: Code(s): F41.9 - Anxiety disorder, unspecified Status: Chronic (6) HTN (hypertension): Qualifiers: Hypertension type: unspecified Qualified Code(s): I10 - Essential (primary) hypertension Code(s): I10 - Essential (primary) hypertension Status: Chronic (7) Depression: Qualifiers: Depression Type: other depression Qualified Code(s): F32.89 - Other specified depressive episodes Code(s): F32.9 - Major depressive disorder, single episode, unspecified Status: Chronic Assessment and Plan: (8) Tobacco dependence: Code(s): F17.200 - Nicotine dependence, unspecified, uncomplicated Status: Chronic DS: Summary Hospital Course Hospital Course: Date of Service of Discharge: March 29, 2019. History of Present Illness: Patient is a 68-year-old gentleman with known chronic respiratory failure on 2-3 L of oxygen at home, end-stage COPD and chronic current smoker who presented to the emergency room with severe shortness of breath. Patient had not been feeling well for 1 week but started to experience increased wheezing and shortness of breath on the day before presentation. Patient denied worsening cough and noticed that he had not been coughing much. Patient did also complain of generalized weakness. No fever chills. No nausea, vomiting or diarrhea. In the emergency room patient with obvious increased work of breathing. He was found to be septic in addition to acute on chronic respiratory failure. [facility] was consulted. Decision was made for admission for further evaluation and treatment. Course in Hospital: On presentation, patient was placed in the ICU where he remained for the duration of his stay. On admission to the ICU, patient was more somnolent. Repeat ABG was obtained. Decision was made for intubation. He was placed on nebulizer treatments along with IV steroids and IV antibiotics with urine, blood and MRSA cultures obtained. All cultures were a ventrally negative. Patient continued with aggressive respiratory treatment. Unfortunately, he was unable to be extubated. Family did not wish to pursue tracheostomy or PEG tube placement. He did initially require pressor support which was able to be removed. Home medications were held and never restarted for hypertension. He did develop ileus during his stay. Tube feedings were started which he did not tolerate. During his stay, he did receive Abilify, bupropion, paroxetine, clonazepam and quetiapine for problems with anxiety. These were given per OG. With the patient not improving and family not wishing to proceed with any further aggressive treatment, decision was made for comfort care on on 03/27/2019. At this point he was terminally weaned from ventilator. IV morphine drip as well as IV Ativan was started. He was moved to the medical floor. While on the medical floor, patient did have the addition of breakthrough IV morphine as well as scopolamine patch and atropine. With prolonged process, family did wish to proceed with hospice consultation on March 29, 2019. Family was able to meet with [facility] on March 29, 2019 with decision to at hospice care. Patient was then discharged from the acute care hospital with plan to readmit t
== END 2019-03-29 12:00 | disposition hospice, inpatient (51) | DRG 870 ==
LOC: ANHED 21:13 → ANHIMU 21:30 → ANHICU 23:00 → ANH2MED 03-29 11:54 → ANHICU 03-30 13:44
PROVIDERS: Internal Medicine; Internal Medicine Critical Care Medicine; Admitting Provider Family Medicine; Emergency Provider Emergency Medicine; PCP Internal Medicine; Visit Provider Hospitalist
DX: A41.9 Sepsis, unspecified organism (principal); J96.22 Acute and chronic respiratory failure with hypercapnia; R65.21 Severe sepsis with septic shock; K56.7 Ileus, unspecified; N17.9 Acute kidney failure, unspecified; J43.9 Emphysema, unspecified; I10 Essential (primary) hypertension; M19.90 Unspecified osteoarthritis, unspecified site; Z86.010 Personal history of colon polyps; F41.8 Other specified anxiety disorders; G47.30 Sleep apnea, unspecified; F17.210 Nicotine dependence, cigarettes, uncomplicated; Z66 Do not resuscitate
CPT/HCPCS: 31500; 36415; 36600; 71045; 74019; 74177; 80048; 80053; 82375; 82805; 83050; 83605; 83735; 83880; 84100; 84484; 85025; 85027; 85610; 85730; 86140; 87040; 87070; 87081; 87086; 87205; 87252; 87804; 93005; 94002; 94003; 94640; 96365; 96367; 96375; 99291; A9270; C1751; J0330; J0456; J0696; J1650; J1940; J2060; J2250; J2270; J2765; J2920; J2930; J3010; J3475; J7030; J7040; J7050; Q9967

== ENCOUNTER 2019-03-29 12:01 | HOS | payer OTHER, MEDICARE, BC, SELFPAY ==
[2019-03-29] MEDS: SCOPOLAMINE 1.5 MG PATCH 3 MG TRANSDERM (15:00)
[2019-03-29] MEDS: ATROPINE SULFATE 1% OPHTH SOLN 5 ML BOTTLE SUBLINGUAL (15:00)
[2019-03-29] MEDS: LORAZEPAM INJ 2 MG/ML VIAL IV PUSH (17:37)
[2019-03-30] MEDS: ATROPINE SULFATE 1% OPHTH SOLN 5 ML BOTTLE SUBLINGUAL ×5 (09:01→23:20)
[2019-03-30] MEDS: LORAZEPAM INJ 2 MG/ML VIAL IV PUSH ×3 (09:38→23:38)
--- NOTE | 2019-03-30 12:40 | PM.IMHP ---
H&P: HPI History of Present Illness Chief complaint: acute respiratory failure with hypercapnea Narrative: Date and Time of Service of History & Physical: March 30, 2019 at 12:25 p.m. Date and Time of Admission to Hospice: March 29, 2019 at 12:42 p.m. Chief Complaint: Need for hospice care. History of Present Illness: To Josue is a 68 year old male with known COPD and chronic respiratory failure who is admitted to the [facility] here at [place] from 03/18/2019 through 03/29/2019 due to acute on chronic respiratory failure, COPD exacerbation, septic shock. Patient was intubated quickly upon original admission. He was being treated appropriately for COPD exacerbation and septic shock in the ICU. Unfortunately, patient was not able to improve from a respiratory standpoint in order to be weaned off the ventilator. Family did not wish to proceed with tracheostomy or PEG tube placement. Family did decide to moved to comfort measures on 03/27/2019 at which time he was terminally weaned off the ventilator. He was then started on IV morphine drip along with IV Ativan. He was transferred to medical floor. Patient continued to have adjustment of comfort measures with addition of scopolamine patch and atropine drops as well as breakthrough IV morphine. With prolonged time on comfort measures, family did request hospice consult. Family met with [facility] on March 29, 2019. Patient meeting inpatient hospice status. As result, he was discharged from the [facility] and readmitted to general inpatient hospice status. Son and [id number] at bedside today. They report he will become slightly agitated with movement. Otherwise, patient is unresponsive. Review of Systems Review of Systems: ROS unobtainable: unobtainable due to mental condition PMFSH Past Medical History Medical History Arthritis Bronchitis Chronic hypoxemic respiratory failure Colon polyps COPD (chronic obstructive pulmonary disease) Depression Hand fracture History of angina HTN (hypertension) Osteomyelitis rt shoulder Pneumonia Sleep apnea Tobacco dependence Surgical History Surgical History Hx of tonsillectomy Hx of vasectomy Family History Family History Mother Family history of lung cancer Patient's mother is Acute myocardial infarction Father Patient's father is Acute myocardial infarction Social History Social History Social History: Patient is . DNR. Information obtained from chart due to patient's status. Smoking packs per day: 1 Smoking cigarettes per day: 20.0 Years smoked: 50 Smoking pack-years: 50.00 Smoking status: Current every day smoker Tobacco type: cigarettes Second hand tobacco smoke exposure: No Additional smoking assessment comments: Now smoking 4 cigs per day per family Alcohol intake: never Drinks per week: 1 Substance use: former Substance use type: marijuana Gender identity (if verbalized by the patient): Male Spiritual care concerns: No Agree to blood products: Yes Meds Home Medications and Allergies Allergies Allergy/AdvReac Type Severity Reaction Status Date / Time guaifenesin Allergy Unknown PT STATES Verified 03/18/19 18:44 FEELS WEIRD, GETS OUT OF IT Vital Signs None taken due to hospice care/comfort measures. Exam Narrative: Exam Narrative: Unresponsive. Const: General: comfortable HENMT: Mouth: Yes dry mucous membranes Eyes: Other: Pupils not pinpoint Neck: Neck: supple Resp: Auscultation: crackles bilateral, rhonchi and diminished lung sounds Cardio: Rate: regular rate Rhythm: regular rhythm GI: Inspection: non-distended GI Palp: Ye
[2019-03-30 14:00] VITALS: PULSE 98; RESP 12; TEMP 36.7; O2SAT 63
[2019-03-30] MEDS: SCOPOLAMINE 1.5 MG PATCH 4.5 MG TRANSDERM (14:04)
--- NOTE | 2019-03-30 19:11 | PC.NURSE ---
Family requesting vital signs as needed, and only if the patient does not begin to become agitated.
[2019-03-30 21:28] VITALS: BP 64/38; PULSE 105; RESP 10; TEMP 36.9; O2SAT 60
--- NOTE | 2019-03-31 08:53 | P.PNIM_ITS ---
Progress Note: A&P Assessment and Plan (1) Acute and chronic respiratory failure with hypercapnia: Code(s): J96.22 - Acute and chronic respiratory failure with hypercapnia Status: Acute Assessment and Plan: Continue hospice care. Being followed by [facility]. Remains IV morphine drip and titrate needed. Continue IV morphine for breakthrough. Continue IV Ativan as needed. Now history scopolamine patches in place. Will continue atropine drops also as needed for secretions. If needed can add additional scopolamine patches. Continue to adjust comfort measures as needed. (2) COPD exacerbation: Code(s): J44.1 - Chronic obstructive pulmonary disease with (acute) exacerbation Status: Acute Assessment and Plan: Now on hospice with care as noted above. (3) Hospice care patient: Code(s): Z51.5 - Encounter for palliative care Status: Acute Assessment and Plan: Hospice care as noted above. Time Spent With Patient Time with patient: 15 - 25 minutes Subjective Date/time seen: 03/31/19 08:53 Interval history: Date of Service: 03/31/2019. Admitted for hospice care. Patient remains unresponsive. in room. reports he appears comfortable. Review of Systems Review of Systems: ROS unobtainable: unobtainable due to mental condition Exam Narrative: Exam Narrative: Unresponsive Const: General: comfortable Neck: Neck: supple Resp: Auscultation: diminished lung sounds Other: Decreased secretions but still slightly audible Cardio: Rate: regular rate Rhythm: regular rhythm GI: Inspection: non-distended GI Palp: Yes Soft to palpation Auscultation: normal bowel sounds Neuro: Other: Unresponsive Extrem: General: no edema Psych: Other: Not agitated Objective Data Vital Signs Vital Signs: Vital Signs - 24 hr 03/30/19 14:00 03/30/19 21:28 Temperature 98.0 F 98.5 F Pulse Rate 98 105 H Respiratory Rate 12 10 L Blood Pressure 64/38 L Pulse Oximetry 63 L 60 L Intake/Output Intake/Output: Intake & Output 03/28/19 03/29/19 03/30/19 03/31/19 23:59 23:59 23:59 23:59 Intake Total 200 500 200 Output Total 850 Balance 200 -350 200 Meds/Results Medications: Active Medications Generic Name Dose Route Start Last Admin Trade Name Freq PRN Reason Stop Dose Admin Acetaminophen 650 mg 03/29/19 13:00 Tylenol Suppository RECTAL Q4H PRN Fever Atropine Sulfate 0 drop 03/29/19 13:01 03/30/19 23:20 Atropine Sulfate 1% Ophth Caitlin SUBLINGUAL 3 drop Q1H PRN Administration SECRETIONS Morphine Sulfate 50 mg/ Sodium 100 mls @ 24 mls/hr 03/29/19 15:00 03/31/19 07:27 Chloride IV CONT 12 mg/hr .Q4H10M LINO 24 mls/hr Administration 12 MG/HR Lorazepam 2 mg 03/29/19 13:00 03/30/19 23:38 Ativan Inj IV PUSH 2 mg Q1H PRN Administration Anxiety Morphine Sulfate 2 mg 03/29/19 13:00 Morphine Sulfate Inj IV PUSH Q2H PRN BREAKTHROUGH PAIN/RESP DISTRES Scopolamine 4.5 mg 03/30/19 13:10 03/30/19 14:04 Transderm-Scop TRANSDERM 4.5 mg Q72HR LINO Administration
[2019-03-31 10:35] VITALS: BP 68/44; PULSE 106; RESP 10; TEMP 37.2; O2SAT 75
[2019-03-31] MEDS: LORAZEPAM INJ 2 MG/ML VIAL IV PUSH (15:32)
[2019-03-31] MEDS: MORPHINE SULFATE 2 MG/ML INJ IV PUSH (15:37)
--- NOTE | 2019-03-31 20:55 | PM.DDS ---
Discharge Sum: Prov Provider Primary care physician: Jairo Carrion DO Admitting provider: Kyle Lucero MD Attending physician on admission: Ashley Paige Consults: [facility] Pronouncing clinician: Astrid Gonzalez Discharge Sum: Diag PCOD End stage COPD. Contributing Factors (1) Acute and chronic respiratory failure with hypercapnia: (2) COPD exacerbation: (3) Hospice care patient: Discharge Sum: Summary Date and Time Date of admission: 03/29/19 12:01 Date of : 03/31/19 Time of : 18:40 Summary Details: History of Present Illness: Patient is a 68-year-old gentleman with known COPD with chronic respiratory failure who was admitted to the [facility] from 03/18/2019 through 03/29/2019 due to acute on chronic respiratory failure, COPD Diederich exacerbation and septic shock. Patient was not intubated upon admission. Unfortunately despite aggressive treatment including IV antibiotics, nebulizer treatments and other appropriate measures, patient was not able to be weaned off the ventilator. Family did not wish to proceed with tracheostomy or PEG tube placement. Family did decide instead to move patient to comfort measures on 03/27/2019 with terminal weaning of ventilator. He was then transferred to the medical floor and started on IV morphine drip along with IV Ativan. Scopolamine patches and atropine drops were added as well as breakthrough IV morphine. With patient not yet , family did request hospice consult on 03/29/2019. Family met with [facility] on 03/29/2019 with patient then discharged from acute care and readmitted to inpatient hospice. Course in Hospital: On admission to inpatient hospice, patient was continued on IV morphine drip along with breakthrough IV morphine, scopolamine patches, atropine drops and IV Ativan as needed. IV morphine drip was titrated several times in order to achieve appropriate comfort. He did have additional scopolamine patches added due to continuing problems with secretions. Patient had total of for scopolamine patches by the time of expiration. Atropine drops were also use for secretions. Additionally IV Ativan and breakthrough IV morphine continue to be available. Patient did gradually declined over the ensuing 2 days. Family did remain at his side. Family comfortably at 6:40 p.m. on March 31, 2019. Additional Data Confirmation of as documented by pronouncing clinician: no pulse and no respirations Family: at bedside Attending/PCP notified?: Yes Attending physician: Ashley Paige MD Was code activated?: No Autopsy requested?: No bar examiner notified?: Yes Organ bank notified?: Yes Advance directives: Yes Hospice patient?: Yes
== END 2019-03-31 18:40 | disposition expired | DRG 189 ==
PROVIDERS: Admitting Provider Hospitalist; PCP Internal Medicine; Visit Provider Hospitalist
DX: J96.22 Acute and chronic respiratory failure with hypercapnia (principal); J44.1 Chronic obstructive pulmonary disease with (acute) exacerbation; Z51.5 Encounter for palliative care; J96.21 Acute and chronic respiratory failure with hypoxia; M19.90 Unspecified osteoarthritis, unspecified site; Z86.010 Personal history of colon polyps; I10 Essential (primary) hypertension; G47.30 Sleep apnea, unspecified; F17.210 Nicotine dependence, cigarettes, uncomplicated
CPT/HCPCS: A9270; J2060; J2270